=== PATIENT | female | born 1950 | race Caucasian/White ===

== ENCOUNTER 2022-04-28 07:57 | Day surgery (SDC) | payer MEDICARE, SELFPAY ==
[2022-04-21 14:56] VITALS: BMI 28.4
--- NOTE | 2022-04-27 13:18 | WPDANESEPPF ---
Anes - Initial Pre Proc Eval Procedure: Operation Date: 04/28/22 09:30 Proposed Procedures p Cataract Extraction with Lens Implant-Left Eye - Siva Fair MD Date/Time: 04/27/22 13:18 Surgeon: Siva Fair MD Pre Op Diagnosis: Cataract Left Eye Patient Data Age: 71 Gender: F Height: 1.68 m Weight: 80 kg Allergies Allergy/AdvReac Type Severity Reaction Status Date / Time meperidine AdvReac Intermediate Nausea and Verified 04/28/22 08:50 Vomiting Home Medications Medication Instructions Recorded Confirmed Type calcium carbonate 600 mg-vitamin 1 cap PO DAILY 04/03/20 04/28/22 History D3 5 mcg (200 unit) capsule (Calcium 600 + D(3)) cholecalciferol (vitamin D3) 125 125 mcg PO DAILY 04/03/20 04/28/22 History mcg (5,000 unit) capsule trazodone 50 mg tablet See Rx Instructions .Route 05/27/21 04/28/22 Rx .COMPLEX #180 tabs polyethylene glycol 3350 17 gram 17 g PO DAILY 07/22/21 04/28/22 History oral powder packet (Miralax) levothyroxine 50 mcg tablet 50 mcg PO DAILY #90 tabs 12/04/21 04/28/22 Rx sertraline 50 mg tablet (Zoloft) 50 mg PO DAILY #90 tabs 03/08/22 04/28/22 Rx omeprazole 40 mg capsule,delayed 40 mg PO DAILY #30 caps 04/15/22 04/28/22 Rx release Patient hx anesthesia problems: none Family hx anesthesia problems: none Results Review: All pre-operative results and documents have been reviewed as part of the pre-operative evaluation. [facility] Past Medical History Medical History (Updated 04/28/22 @ 09:22 by Ghulam Rowe DO) Acute UTI (~05/2018) Anxiety NEIL (generalized anxiety disorder) Herpes simplex type 1 infection Hypothyroidism Postmenopausal state Primary insomnia Right hip pain (~11/2017) Urinary incontinence concurrent with and due to female genital prolapse (~08/2018) Surgical History Surgical History (Updated 04/27/22 @ 13:19 by Ghulam Rowe DO) History of appendectomy History of arthroplasty of left knee Partial medial History of bilateral tubal ligation History of blepharoplasty History of delivery x 2 History of hysterectomy History of left knee replacement Family History Family History Sibling Family history of lung cancer Mother Family history of malignant neoplasm of ovary Other Family history of arthritis Family history of malignant neoplasm Social History Social History Smoking status: Never smoker Second hand tobacco smoke exposure: No Alcohol intake: current Drinks per week: 1 Alcohol use details: 2 PER MONTH Substance use: never Substance use type: does not use Lack of Transportation: No Lack of Food: Never True Current Housing: I Have Housing Concerned About Future Housing: No Difficulty Paying Gas/Electric Bills: No Difficulty Paying for Meds: No Currently Unemployed: No Education: Associate Degree Difficulty w/ Childcare or Family Care: No Living arrangements: with family Gender identity (if verbalized by the patient): Female Spiritual care concerns: No Agree to blood products: Yes Anes - Eval Final PreProcedure Day of Procedure 04/27/22 13:18 Patient weight: overweight Heart: regular rate and rhythm Lungs: clear to auscultation Airway: Mallampati scale class II Neurological: alert and oriented Last oral intake: >/= 8 hours ASA classification: II Emergent: no Anesthetic plan: proceed Anesthesia type and monitoring: monitored anesthesia care and standard monitoring Results Review: All pre-operative results and documents have been reviewed as part of the pre-operative evaluation. Informed Consent: The patient's anesthetic plan and its attendant risks and benefits were discussed with the patient/family/POA. Questions were solicited and answers provided to the satisfaction of the patient/family/POA.
[2022-04-28 08:53] VITALS: BP 124/89; PULSE 67; RESP 20; TEMP 36.6; O2SAT 100
[2022-04-28] MEDS: OFLOXACIN 0.3% OPHTH SOLN 5 ML BTL 1 DROP AFFCTD EYE ×2 (08:57→10:39)
[2022-04-28] MEDS: TETRACAINE HCL 0.5% OPHTH SOLN 4 ML BTL 1 DROP AFFCTD EYE ×3 (08:57→09:08)
--- NOTE | 2022-04-28 08:58 | WPDHPUPDATE1 ---
History and Physical Update Update Date/Time: 04/28/22 08:58 History and Physical has been reviewed, including an updated exam of the patient. There are NO changes in the patient's condition. Risks, benefits, and alternatives have been discussed and questions answered. Patient agrees to proceed with procedure.
[2022-04-28] MEDS: LIDOCAINE HCL 2% JELLY 5 ML TUBE 1 APPLIC AFFCTD EYE (10:09)
[2022-04-28] MEDS: LIDOCAINE HCL 1% PF INJ 5 ML VIAL 1 ML INTRAOCULA (10:25)
[2022-04-28] MEDS: NEOMYCIN/POLYMYXIN/DEXAMETH OP OINT 3.5 GM TUBE 1 APPLIC AFFCTD EYE (10:39)
[2022-04-28] MEDS: prednisoLONE ACETATE 1% OPHTH 5 ML 1 DROP AFFCTD EYE (10:39)
[2022-04-28 10:48] VITALS: BP 142/83; PULSE 59; RESP 14; O2SAT 100
[2022-04-28] MEDS: acetaZOLAMIDE TAB 250 MG TABLET PO (10:51)
--- NOTE | 2022-04-28 12:04 | WPDANESPN ---
Anes - Prog Note Post-Op Date/Time: 04/28/22 12:04 Cardiovascular status: normal Respiratory status: normal Airway patency: baseline Mental status: baseline Post-Op hydration status: normal Vital Signs: Last Vital Signs Temp 36.6 C 04/28/22 08:53 Pulse 59 L 04/28/22 10:48 Resp 14 04/28/22 10:48 BP 142/83 H 04/28/22 10:48 Pulse Ox 100 04/28/22 10:48 O2 Del Method Room Air 04/28/22 10:48 Pain Score (VAS): 0 Post-procedural complaints: none Patient Feedback: Patient satisfied with anesthetic care. Other Findings: Patient vital signs back to baseline. Patient denies nausea and vomiting. Patient's pain under control. Patient OK for discharge.
--- NOTE | 2022-04-28 12:31 | W.PM.PROC2 ---
Procedure Note - Detailed Date of Procedure 04/28/22 Pre-op Diagnosis Cataract Left Eye Post-op Diagnosis Same Procedure Performed Cataract Extraction (by Phacoemulsification) and lntraocular Lens Implant Surgeon Siva Fair MD Anesthesia MAC Description of Procedure The eye was anesthetized with topical 0.75% bupivacaine. After intravenous sedation and placement of monitors, the patient was prepped and draped in the usual sterile manner. A lid speculum was placed. A paracentesis was made, and preservative free 1% lidocaine was instilled in the anterior chamber. The anterior chamber was then filled with Viscoat viscoelastic. A alisha keratome was used to create the wound. Continuous tear anterior capsulotomy was performed. The lens was hydro dissected before being removed with phacoemulsification. The remaining lenticular cortex was removed with aspiration. The capsular bag was polished and filled with viscoelastic material. An intraocular lens was chosen, inspected, irrigated and placed within the capsular bag where it was seen to be centered and stable. The viscoelastic material was aspirated. The wound was closed and found to be watertight. Ciloxan drops were placed in the eye. The speculum was removed. A Martin shield was applied. The patient tolerated the procedure well and left the operating room in satisfactory condition. Implants See chart Complications None Condition Stable Disposition Same day
== END 2022-04-28 11:05 | disposition home or self-care (01) ==
PROVIDERS: PCP Family Medicine; Visit Provider Student in an Organized Health Care Education/Training Program
PROC: (CPT 66983; principal; 2022-04-28 09:30)
DX: H25.12 Age-related nuclear cataract, left eye (principal)
CPT/HCPCS: 66984

== ENCOUNTER 2022-05-12 07:53 | Day surgery (SDC) | payer MEDICARE, SELFPAY ==
--- NOTE | 2022-05-12 07:26 | WPDHPUPDATE1 ---
History and Physical Update Update Date/Time: 05/12/22 07:26 History and Physical has been reviewed, including an updated exam of the patient. There are NO changes in the patient's condition. Risks, benefits, and alternatives have been discussed and questions answered. Patient agrees to proceed with procedure.
[2022-05-12 08:05] VITALS: BP 128/89; PULSE 65; RESP 16; TEMP 36.8; O2SAT 100
[2022-05-12] MEDS: OFLOXACIN 0.3% OPHTH SOLN 5 ML BTL 1 DROP AFFCTD EYE (08:15)
[2022-05-12] MEDS: TETRACAINE HCL 0.5% OPHTH SOLN 4 ML BTL 1 DROP AFFCTD EYE ×3 (08:15→08:25)
--- NOTE | 2022-05-12 08:29 | WPDANESEPPF ---
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 Right Eye Patient Data Age: 71 Gender: F Height: 1.63 m Weight: 78 kg Allergies Allergy/AdvReac Type Severity Reaction Status Date / Time meperidine AdvReac Intermediate Nausea and Verified 05/05/22 10:30 Vomiting Home Medications Medication Instructions Recorded Confirmed Type calcium carbonate 600 mg-vitamin 1 cap PO DAILY 04/03/20 05/05/22 History D3 5 mcg (200 unit) capsule (Calcium 600 + D(3)) cholecalciferol (vitamin D3) 125 125 mcg PO DAILY 04/03/20 05/05/22 History mcg (5,000 unit) capsule trazodone 50 mg tablet See Rx Instructions .Route 05/27/21 05/05/22 Rx .COMPLEX #180 tabs polyethylene glycol 3350 17 gram 17 g PO DAILY 07/22/21 05/05/22 History oral powder packet (Miralax) levothyroxine 50 mcg tablet 50 mcg PO DAILY #90 tabs 12/04/21 05/05/22 Rx sertraline 50 mg tablet (Zoloft) 50 mg PO DAILY #90 tabs 03/08/22 05/05/22 Rx omeprazole 40 mg capsule,delayed 40 mg PO DAILY #30 caps 04/15/22 05/05/22 Rx release Patient hx anesthesia problems: none Family hx anesthesia problems: none Results Review: All pre-operative results and documents have been reviewed as part of the pre-operative evaluation. [facility] Past Medical History Medical History (Updated 04/28/22 @ 09:22 by Ghulam Rowe DO) Acute UTI (~05/2018) Anxiety NEIL (generalized anxiety disorder) Herpes simplex type 1 infection Hypothyroidism Postmenopausal state Primary insomnia Right hip pain (~11/2017) Urinary incontinence concurrent with and due to female genital prolapse (~08/2018) Surgical History Surgical History (Updated 04/27/22 @ 13:19 by Ghulam Rowe DO) History of appendectomy History of arthroplasty of left knee Partial medial History of bilateral tubal ligation History of blepharoplasty History of delivery x 2 History of hysterectomy History of left knee replacement Family History Family History Sibling Family history of lung cancer Mother Family history of malignant neoplasm of ovary Other Family history of arthritis Family history of malignant neoplasm Social History Social History Smoking status: Never smoker Second hand tobacco smoke exposure: No Alcohol intake: current Drinks per week: 1 Alcohol use details: 2 PER MONTH Substance use: never Substance use type: does not use Lack of Transportation: No Lack of Food: Never True Current Housing: I Have Housing Concerned About Future Housing: No Difficulty Paying Gas/Electric Bills: No Difficulty Paying for Meds: No Currently Unemployed: No Education: Associate Degree Difficulty w/ Childcare or Family Care: No Living arrangements: with family Gender identity (if verbalized by the patient): Female Spiritual care concerns: No Agree to blood products: Yes Anes - Eval Final PreProcedure Day of Procedure 05/12/22 08:29 Patient weight: overweight Heart: regular rate and rhythm Lungs: clear to auscultation Airway: Mallampati scale class II Neurological: alert and oriented Last oral intake: >/= 8 hours ASA classification: II Emergent: no Anesthetic plan: proceed Anesthesia type and monitoring: monitored anesthesia care and standard monitoring Results Review: All pre-operative results and documents have been reviewed as part of the pre-operative evaluation. Informed Consent: The patient's anesthetic plan and its attendant risks and benefits were discussed with the patient/family/POA. Questions were solicited and answers provided to the satisfaction of the patient/family/
[2022-05-12] MEDS: LIDOCAINE HCL 2% JELLY 5 ML TUBE 1 APPLIC AFFCTD EYE (08:55)
[2022-05-12] MEDS: LIDOCAINE HCL 1% PF INJ 5 ML VIAL 1 ML INTRAOCULA (09:23)
[2022-05-12] MEDS: NEOMYCIN/POLYMYXIN/DEXAMETH OP OINT 3.5 GM TUBE 1 APPLIC AFFCTD EYE (09:30)
[2022-05-12] MEDS: HOME MEDICATION 1 EACH AFFCTD EYE (09:30)
[2022-05-12 09:33] VITALS: BP 127/68; PULSE 55; RESP 15; O2SAT 100
[2022-05-12] MEDS: acetaZOLAMIDE TAB 250 MG TABLET PO (09:37)
--- NOTE | 2022-05-12 11:37 | W.PM.PROC2 ---
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 After intravenous sedation and placement of monitors, the patient was prepped and draped in the usual sterile manner. A lid speculum was placed. A paracentesis was made, and preservative free 1% lidocaine was instilled in the anterior chamber. The anterior chamber was then filled with Viscoat viscoelastic. A alisha keratome was used to create the wound. Continuous tear anterior capsulotomy was performed. The lens was hydro dissected before being removed with phacoemulsification. The remaining lenticular cortex was removed with aspiration. The capsular bag was polished and filled with viscoelastic material. An intraocular lens was chosen, inspected, irrigated and placed within the capsular bag where it was seen to be centered and stable. The viscoelastic material was aspirated. The wound was closed and found to be watertight. Ciloxan drops were placed in the eye. The speculum was removed. A Martin shield was applied. The patient tolerated the procedure well and left the operating room in satisfactory condition. Implants See chart Complications None Condition Stable Disposition Same day
--- NOTE | 2022-05-12 11:46 | WPDANESPN ---
Anes - Prog Note Post-Op Date/Time: 05/12/22 11:46 Cardiovascular status: normal Respiratory status: normal Airway patency: baseline Mental status: baseline Post-Op hydration status: normal Vital Signs: Last Vital Signs Temp 36.8 C 05/12/22 08:05 Pulse 55 L 05/12/22 09:33 Resp 15 05/12/22 09:33 BP 127/68 05/12/22 09:33 Pulse Ox 100 05/12/22 09:33 O2 Del Method Room Air 05/12/22 09:33 Pain Score (VAS): 0 Post-procedural complaints: none Patient Feedback: Patient satisfied with anesthetic care.
== END 2022-05-12 09:59 | disposition home or self-care (01) ==
PROVIDERS: PCP Family Medicine; Visit Provider Student in an Organized Health Care Education/Training Program
PROC: (CPT 66983; principal; 2022-05-12 08:50)
DX: H25.11 Age-related nuclear cataract, right eye (principal)
CPT/HCPCS: 66984

== ENCOUNTER → 2022-11-16 15:32 | Outpatient (CLI) | payer MEDICARE, SELFPAY ==
--- NOTE | ~2022-11-16 | XR_ITS ---
EXAMINATION: XR chest 2V 11/16/2022 15:53 INDICATION: Chronic cough PROCEDURE: 2 view chest COMPARISON: 01/23/2015 FINDINGS: The lungs are clear. The cardiomediastinal silhouette is within normal limits. There are no pleural effusions. There is no pneumothorax suspected. IMPRESSION: 1: NO ACUTE CARDIOPULMONARY DISEASE. Reviewed, dictated and finalized at location L.
== END ==
PROVIDERS: PCP Family Medicine; Visit Provider Family Medicine
DX: R05.3 Chronic cough (principal)
CPT/HCPCS: 71046

== ENCOUNTER → 2023-01-13 11:28 | Outpatient (CLI) | payer MEDICARE, SELFPAY ==
--- NOTE | ~2023-01-13 | XR_ITS ---
EXAMINATION: XR ribs BI 3V w CXR 2V INDICATION: Bilateral chest pain TECHNIQUE: AP and lateral views of the chest and 3 views of the bilateral ribs were obtained. COMPARISON: 11/16/2022 FINDINGS: The lungs are free of acute opacities. No pleural effusion or pneumothorax there is moderat e thoracic spondylosis. There is a questionable nondisplaced anterolateral fracture of the left eight h rib. IMPRESSION: 1. No acute cardiopulmonary abnormality. 2. Possible nondisplaced anterolateral fracture of the left eighth rib. Reviewed, dictated and finalized at location L. [facility]
== END ==
PROVIDERS: PCP Physician Assistant; Visit Provider Physician Assistant
DX: R07.89 Other chest pain (principal)
CPT/HCPCS: 71046; 71110

== ENCOUNTER 2023-01-20 06:12 | Day surgery (SDC) | payer MEDICARE, SELFPAY ==
[2022-12-15 10:42] VITALS: BMI 29.6
[2023-01-13 09:05] VITALS: BMI 27.7
[2023-01-20 07:01] VITALS: BMI 28.0
--- NOTE | 2023-01-20 07:55 | PM.HPGS ---
History of Present Illness History of Present Illness Consent: Risks, benefits, and alternatives have been discussed and questions answered. Patient agrees to proceed with procedure. Chief complaint: Chronic Cough without Esophagitis Narrative: Maryjane Mancuso is a 72 year old female with gerd that improved after omeprazole and pepcid but still with some cough, never had egd Review of Systems Constitutional: Constitutional: Denies headache(s) and Denies weakness Eyes: Eyes: Denies blurry vision ENT: Reports Normal hearing present, Denies headache(s) and Denies neck pain Cardiovascular: Cardiovascular: Denies chest pain and Denies dyspnea Respiratory: Respiratory: Denies dyspnea Gastrointestinal: Gastrointestinal: Reports no additional gastrointestinal complaints Genitourinary: Genitourinary: Denies dysuria Musculoskeletal: Musculoskeletal: Denies neck pain Integumentary/Breasts: Skin/Breast: Denies dry skin Neurologic: Reports Normal hearing present, Denies headache(s) and Denies weakness Psychiatric: Psychiatric: Denies anxiety Endocrine: Endocrine: Denies change in body appearance Hematologic/Lymphatic: Hematologic/Lymphatic: Denies easy bleeding Allergic/Immunologic: Allergic/Immunologic: Denies urticaria PMFSH Past Medical History Medical History (Updated 01/20/23 @ 07:56 by Bryant Bass MD) Anxiety Cough NEIL (generalized anxiety disorder) Gastroesophageal reflux disease Herpes simplex type 1 infection Hypothyroidism Postmenopausal state Primary insomnia Right hip pain (~11/2017) Urinary incontinence concurrent with and due to female genital prolapse (~08/2018) Surgical History Surgical History History of appendectomy History of arthroplasty of left knee Partial medial History of bilateral tubal ligation History of blepharoplasty History of delivery x 2 History of hysterectomy History of left knee replacement Hx of cataract surgery Both eyes 06/27 Family History Family History Sibling Family history of lung cancer Mother Family history of malignant neoplasm of ovary Other Family history of arthritis Family history of malignant neoplasm Social History Social History Smoking status: Never smoker Second hand tobacco smoke exposure: No Alcohol intake: current Drinks per week: 1 Alcohol use details: 2 PER MONTH Substance use: never Substance use type: does not use Lack of Transportation: No Lack of Food: Never True Current Housing: I Have Housing Concerned About Future Housing: No Difficulty Paying Gas/Electric Bills: No Difficulty Paying for Meds: No Currently Unemployed: No Education: Associate Degree Difficulty w/ Childcare or Family Care: No Living arrangements: with family Gender identity (if verbalized by the patient): Female Spiritual care concerns: No Agree to blood products: Yes Meds Home Medications and Allergies Home Medications Medication Instructions Recorded Confirmed Type calcium carbonate 600 mg-vitamin 1 cap PO DAILY 04/03/20 01/20/23 History D3 5 mcg (200 unit) capsule (Calcium 600 + D(3)) cholecalciferol (vitamin D3) 125 125 mcg PO DAILY 04/03/20 01/20/23 History mcg (5,000 unit) capsule polyethylene glycol 3350 17 gram 17 g PO DAILY 07/22/21 01/20/23 History oral powder packet (Miralax) mirabegron 50 mg tablet,extended 50 mg PO DAILY 07/27/22 01/20/23 History release 24 hr (Myrbetriq) trazodone 50 mg tablet See Rx Instructions .Route 09/05/22 01/20/23 Rx .COMPLEX #180 tabs omeprazole 40 mg capsule,delayed 40 mg PO DAILY #90 caps 10/13/22 01/20/23 Rx release cyanocobalamin (vitamin B-12) 1,000 mcg PO DAILY 11/16/22 01/20/23 History 1,000 mcg capsule famotidine 40 mg tablet 40 mg PO
--- NOTE | 2023-01-20 07:59 | WPDANESEPPF ---
Anes - Initial Pre Proc Eval Procedure: Operation Date: 01/20/23 08:00 Proposed Procedures p Esophagogastroduodenoscopy - Bryant Bass MD Date/Time: 01/20/23 07:59 Surgeon: Bryant Bass MD Pre Op Diagnosis: Chronic Cough without Esophagitis Patient Data Age: 72 Gender: F Height: 1.68 m Weight: 78.7 kg Allergies Allergy/AdvReac Type Severity Reaction Status Date / Time meperidine AdvReac Intermediate Nausea and Verified 01/20/23 06:59 Vomiting Home Medications Medication Instructions Recorded Confirmed Type calcium carbonate 600 mg-vitamin 1 cap PO DAILY 04/03/20 01/20/23 History D3 5 mcg (200 unit) capsule (Calcium 600 + D(3)) cholecalciferol (vitamin D3) 125 125 mcg PO DAILY 04/03/20 01/20/23 History mcg (5,000 unit) capsule polyethylene glycol 3350 17 gram 17 g PO DAILY 07/22/21 01/20/23 History oral powder packet (Miralax) mirabegron 50 mg tablet,extended 50 mg PO DAILY 07/27/22 01/20/23 History release 24 hr (Myrbetriq) trazodone 50 mg tablet See Rx Instructions .Route 09/05/22 01/20/23 Rx .COMPLEX #180 tabs omeprazole 40 mg capsule,delayed 40 mg PO DAILY #90 caps 10/13/22 01/20/23 Rx release cyanocobalamin (vitamin B-12) 1,000 mcg PO DAILY 11/16/22 01/20/23 History 1,000 mcg capsule famotidine 40 mg tablet 40 mg PO DAILY #90 tabs 11/16/22 01/20/23 Rx levothyroxine 50 mcg tablet 50 mcg PO DAILY #90 tabs 11/16/22 01/20/23 Rx multivitamin 1 tablet PO DAILY 11/16/22 01/20/23 History sertraline 50 mg tablet (Zoloft) 50 mg PO DAILY #90 tabs 01/19/23 01/20/23 Rx Patient hx anesthesia problems: none Family hx anesthesia problems: none Results Review: All pre-operative results and documents have been reviewed as part of the pre-operative evaluation. [facility] Past Medical History Medical History Anxiety Cough NEIL (generalized anxiety disorder) Gastroesophageal reflux disease Herpes simplex type 1 infection Hypothyroidism Postmenopausal state Primary insomnia Right hip pain (~11/2017) Urinary incontinence concurrent with and due to female genital prolapse (~08/2018) Surgical History Surgical History History of appendectomy History of arthroplasty of left knee Partial medial History of bilateral tubal ligation History of blepharoplasty History of delivery x 2 History of hysterectomy History of left knee replacement Hx of cataract surgery Both eyes 06/27 Family History Family History Sibling Family history of lung cancer Mother Family history of malignant neoplasm of ovary Other Family history of arthritis Family history of malignant neoplasm Social History Social History Smoking status: Never smoker Second hand tobacco smoke exposure: No Alcohol intake: current Drinks per week: 1 Alcohol use details: 2 PER MONTH Substance use: never Substance use type: does not use Lack of Transportation: No Lack of Food: Never True Current Housing: I Have Housing Concerned About Future Housing: No Difficulty Paying Gas/Electric Bills: No Difficulty Paying for Meds: No Currently Unemployed: No Education: Associate Degree Difficulty w/ Childcare or Family Care: No Living arrangements: with family Gender identity (if verbalized by the patient): Female Spiritual care concerns: No Agree to blood products: Yes Anes - Eval Final PreProcedure Day of Procedure 01/20/23 07:59 Patient weight: overweight Heart: regular rate and rhythm Lungs: clear to auscultation Airway: Mallampati scale class 1 Neurological: alert and oriented Last oral intake: >/= 8 hours ASA classification: II Emergent: no Anesthetic plan: proceed Anesthesia type and monitoring: ge
[2023-01-20 08:12] VITALS: BP 130/85; PULSE 69; RESP 16; O2SAT 96
[2023-01-20] MEDS: LACTATED RINGERS 1,000 ML 150 ML IV CONT (08:19)
[2023-01-20 08:22] VITALS: BP 130/68; PULSE 63; RESP 16; O2SAT 100
[2023-01-20 08:32] VITALS: BP 144/85; PULSE 60; RESP 16; O2SAT 100
--- NOTE | 2023-01-20 08:39 | WPDANESPN ---
Anes - Prog Note Post-Op Date/Time: 01/20/23 08:39 Cardiovascular status: normal Respiratory status: normal Airway patency: baseline Mental status: baseline Post-Op hydration status: normal Vital Signs: Last Vital Signs Pulse 63 01/20/23 08:22 Resp 16 01/20/23 08:22 BP 130/68 01/20/23 08:22 Pulse Ox 100 01/20/23 08:22 O2 Del Method Room Air 01/20/23 08:22 Pain Score (VAS): 0 I/O: Intake & Output 01/19/23 01/20/23 01/20/23 23:59 07:59 15:59 Intake Total 100 Balance 100 Patient Feedback: Patient satisfied with anesthetic care.
== END 2023-01-20 08:46 | disposition home or self-care (01) ==
PROVIDERS: PCP Family Medicine; Visit Provider Internal Medicine Gastroenterology
PROC: 0DJ08ZZ Inspection of Upper Intestinal Tract, Via Natural or Artificial Opening Endoscopic (ICD-10-PCS; CPT 43235; principal; 2023-01-20 08:00)
DX: K21.9 Gastro-esophageal reflux disease without esophagitis (principal); R05.3 Chronic cough
CPT/HCPCS: 43239

== ENCOUNTER 2023-01-20 08:11 | Outpatient (NON) | payer MEDICARE, SELFPAY | END 2023-01-20 08:12 | disposition home or self-care (01) | PROVIDERS: PCP Family Medicine; Visit Provider Internal Medicine Gastroenterology | DX: R05.9 Cough, unspecified (principal) | CPT/HCPCS: 88305 ==

== ENCOUNTER 2023-04-12 10:54 | Emergency (ER) | payer OTHER, SELFPAY ==
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
[2023-04-12 10:57] VITALS: BP 173/84; PULSE 70; RESP 17; TEMP 36.6; O2SAT 100
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
[2023-04-12] MEDS: KETOROLAC 15 MG/ML VIAL (*BKC) IV PUSH (13:05)
[2023-04-12 13:06] VITALS: BP 183/99; PULSE 64; RESP 18; O2SAT 100
== END 2023-04-12 13:29 | disposition home or self-care (01) ==
PROVIDERS: Emergency Provider Physician Assistant; PCP Family Medicine
DX: S13.4XXA Sprain of ligaments of cervical spine, initial encounter (principal); F41.9 Anxiety disorder, unspecified; K21.9 Gastro-esophageal reflux disease without esophagitis; E03.9 Hypothyroidism, unspecified; V89.2XXA Person injured in unspecified motor-vehicle accident, traffic, initial encounter
CPT/HCPCS: 70450; 72125; 96374; 99284; J1885

== ENCOUNTER 2023-06-14 12:23 | Outpatient (CLI) | payer OTHER, SELFPAY ==
--- NOTE | ~2023-06-14 | XR_ITS ---
XR lumbar spine min 4V 06/14/2023 13:09 Indication: Low back pain Procedure: 5 views lumbar spine Comparison: No prior studies for comparison. Findings: There is dextroscoliosis. Vertebral body heights are maintained. There is disc narrowing at multiple lumbar levels. There is facet hypertrophy of the mid and lower lumbar spine. No evidence fo r spondylolisthesis. Sacral foramen are symmetric. Impression: 1: Moderate lumbar spondylosis with dextroscoliosis Reviewed, dictated and finalized at location A. Impression: 1: Moderate lumbar spondylosis with dextroscoliosis
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
== END 2023-06-14 12:24 ==
LOC: MICIMG 12:24
PROVIDERS: PCP Family Medicine; Visit Provider Family Medicine
DX: M54.50 Low back pain, unspecified (principal); M54.2 Cervicalgia; M43.06 Spondylolysis, lumbar region; M41.86 Other forms of scoliosis, lumbar region; M43.02 Spondylolysis, cervical region
CPT/HCPCS: 72110; 72141

== ENCOUNTER 2023-09-20 06:58 | Day surgery (SDC) | payer OTHER, SELFPAY ==
[2023-09-05 13:21] VITALS: BMI 28.8
[2023-09-15 15:00] VITALS: BMI 28.8
--- NOTE | ~2023-09-20 | XR_ITS ---
EXAMINATION: XR fluoroscopy no charge DATE: 09/20/2023 8:45 CDT INDICATION: RT C6-7 INTERLAMINAR EPI STEROID INJ . TECHNIQUE: 4 fluoroscopic images and 3 cine clips of the cervical spine were obtained during right C6 -7 interlaminar epidural steroid injection, performed by Terrance Richardson MD. I was not present durin g the procedure. Fluoroscopy exposure time was 14.6 seconds. Air Kerma 2.35 mGy. COMPARISON: None FINDINGS/IMPRESSION: Fluoroscopic documentation of right C6-7 interlaminar epidural steroid injection. Please refer to the operative note for complete procedural details. Reviewed, dictated and finalized at location K.
--- NOTE | 2023-09-20 06:18 | PM.HPGS ---
History of Present Illness History of Present Illness Consent: Risks, benefits, and alternatives have been discussed and questions answered. Patient agrees to proceed with procedure. Chief complaint: cervical radiculopathy, cervical spinal stenosis Narrative: Maryjane Mancuso is a 72 year old female with chronic, recalcitrant and disabling right cervical radiculopathy and neck and upper extremity pain secondary to cervical spinal stenosis with failure to respond to aggressive conservative measures including PT, oral and topical analgesics, opioid and nonopioid analgesics, rest, time and activity/behavioral modification over the past 1-2 years who presents for rightward cervical interlaminar epidural steroid injection at C6-7 under fluoroscopic guidance and with contrast control. Review of Systems Review of Systems: Patient denies any new infectious, allergic, cardiopulmonary, neurologic or constitutional symptoms or changes in activity tolerance or exercise capacity including new or progressive SOB/GUY, peripheral edema, productive cough, dysuria, nausea/vomiting, diarrhea, weight change, fevers/chills/night sweats, new or progressive neurologic deficit, cognitive or mood changes since last seen, except as documented in the HPI. All systems reviewed & are unremarkable except as noted in HPI and below PMFSH Past Medical History Medical History Anxiety Cough NEIL (generalized anxiety disorder) Gastroesophageal reflux disease Herpes simplex type 1 infection Hypothyroidism Lumbar spondylosis Postmenopausal state Primary insomnia Right hip pain (~11/2017) Urinary incontinence concurrent with and due to female genital prolapse (~08/2018) Surgical History Surgical History History of appendectomy History of arthroplasty of left knee Partial medial History of bilateral tubal ligation History of blepharoplasty History of delivery x 2 History of hysterectomy History of left knee replacement Hx of cataract surgery Both eyes 06/27 Family History Family History Sibling Family history of lung cancer Mother Family history of malignant neoplasm of ovary Other Family history of arthritis Family history of malignant neoplasm Social History Social History Smoking status: Never smoker Second hand tobacco smoke exposure: Yes Alcohol intake: current Drinks per week: 1 Alcohol use details: beer/ wine socially Substance use: never Substance use type: does not use Do You Feel Safe in your Home?: Yes Lack of Transportation: No Lack of Food: Never True Current Housing: I Have Housing Concerned About Future Housing: No Difficulty Paying Gas/Electric Bills: No Difficulty Paying for Meds: No Currently Unemployed: No Education: Associate Degree Difficulty w/ Childcare or Family Care: No Living arrangements: with family Gender identity (if verbalized by the patient): Female Spiritual care concerns: No Agree to blood products: Yes Meds Home Medications and Allergies Home Medications Medication Instructions Recorded Confirmed Type calcium carbonate 600 mg-vitamin 1 cap PO DAILY 04/03/20 09/15/23 History D3 5 mcg (200 unit) capsule (Calcium 600 + D(3)) polyethylene glycol 3350 17 gram 17 g PO DAILY 07/22/21 09/15/23 History oral powder packet (Miralax) trazodone 50 mg tablet See Rx Instructions .Route 09/05/22 09/15/23 Rx .COMPLEX #180 tabs omeprazole 40 mg capsule,delayed 40 mg PO DAILY #90 caps 10/13/22 09/15/23 Rx release mirabegron 50 mg tablet,extended 50 mg PO DAILY #90 tabs 03/08/23 09/15/23 Rx release 24 hr (Myrbetriq) sertraline 50 mg tablet (Zoloft) 50 mg PO DAILY #90 tabs 04/04/23
--- NOTE | 2023-09-20 06:22 | WPDHPUPDATE1 ---
History and Physical Update Update Date/Time: 09/20/23 06:22 History and Physical has been reviewed, including an updated exam of the patient. There are NO changes in the patient's condition. Risks, benefits, and alternatives have been discussed and questions answered. Patient agrees to proceed with procedure.
--- NOTE | 2023-09-20 06:22 | W.PM.PROC2 ---
Procedure Note - Detailed Date of Procedure 09/20/23 Pre-op Diagnosis cervical radiculopathy, cervical spinal stenosis Post-op Diagnosis Same Procedure Performed Rightward Cervical Interlaminar Epidural Steroid Injection at C6-7 under Fluoroscopic Guidance and with Contrast Control]. Surgeon Terrance Richardson MD Anesthesia Local Description of Procedure INFORMED CONSENT: Risks, benefits and alternatives to the procedure were discussed in detail with the patient who expressed explicit understanding and consent to proceed. Patient was informed verbally and in written form regarding the risks associated with the procedure including the low risk of serious infection, bleeding/bruising, allergic reaction, nerve or organ injury, paralysis, procedural site pain or discomfort, worsening pain and/or mobility, failure to treat and/or disfigurement. The patient expressed explicit understanding and consent to proceed. All materials required for the procedure were available prior to procedure start. Site and side was marked prior to procedure and confirmed in the presence of the patient. PROCEDURE IN DETAIL: The patient was brought to the procedural suite and placed in the prone position. Patient's head was positioned and stabilized with a ProneView pillow or equivalent. Patient was made comfortable with use of pillows under the chest, hips and ankles. Skin overlying the injection site was prepared broadly with ChloraPrep applicator and draped in a sterile manner. Aseptic technique was employed throughout. The endplates of the vertebral body at the site of interest were aligned in the AP view. Slight caudad tilt and ipsilateral oblique angulation was utilized to optimize visualization of the targeted posterior intervertebral foramen at C6-7. Local anesthesia was established by infiltration with approximately 5 mL of 2% lidocaine via a 1-1/2 inch 27-gauge needle. A 20-gauge 4-inch Tuohy epidural needle was advanced intermittently until appropriate loss of resistance to air was identified via plastic loss of resistance syringe. Lateral view was used to confirm the appropriate positioning of the needle tip within the posterior epidural space. [In the AP view, 2.0 mL of Omnipaque 300 contrast medium was injected after negative aspiration for CSF, blood or other bodily fluid, showing appropriate epidural spread of contrast without evidence of intravascular or intrathecal placement.] After negative repeat aspiration for CSF, blood or other bodily fluid, A 4 mL solution containing 6 mg of betamethasone in sterile PF Normal Saline was injected after negative repeat aspiration. Appropriate spread of the injectate was confirmed with washout of previously injected contrast. No parasthesias were elicited. Needle was removed completely intact without difficulty. Images were saved and documented in the patient chart. Patient's skin was cleansed and sterile bandage applied. The patient tolerated the procedure well. The patient was transported to the recovery area in stable condition where they were observed for an appropriate amount of time prior to discharge, without evidence of complication. The patient was instructed to avoid excessive activity for the next 48 hours, including overhead work, reaching or extended device/computer usage. Showers only for 48 hours. They were instructed not to drive or operate heavy machinery for 24 hours. They are to monitor for severe headaches, fevers, chills, night sweats, erythema/swelling at the site or any other signs of infection, bleeding/bruising, bowel or bladder changes as well as new pain, weakness or numbness in the upper or lower extremity. Should they notice these changes, they are instructed to call our office immediately or report directly to the nearest Emergency Department if no answer or if after posted office hours. CONTRAST WASTED: 28mL Omnipaque 300. Estimated Blood Loss 0 IV Fluids 0 Urine Output 0 Drains No Packing No Path
[2023-09-20 08:07] VITALS: BP 139/99; PULSE 75; RESP 18; TEMP 37.2; O2SAT 98; BMI 28.3
[2023-09-20 08:55] VITALS: BP 168/80; PULSE 62; RESP 16; O2SAT 97
[2023-09-20 09:01] VITALS: BP 167/88; PULSE 72; RESP 16; O2SAT 97
[2023-09-20] MEDS: BUPivacaine HCL 0.5% 10 ML AMP INFILTRATE (09:01)
[2023-09-20] MEDS: LIDOCAINE HCL 1% PF INJ 5 ML VIAL 2 ML XX (09:06)
[2023-09-20 09:08] VITALS: BP 166/84; PULSE 58; RESP 16; O2SAT 99
== END 2023-09-20 09:19 | disposition home or self-care (01) ==
PROVIDERS: PCP Family Medicine; Visit Provider Anesthesiology Pain Medicine
PROC: (CPT 62321; principal; 2023-09-20 08:45)
DX: M54.12 Radiculopathy, cervical region (principal); M48.02 Spinal stenosis, cervical region
CPT/HCPCS: 62321; 99199

== ENCOUNTER 2023-11-23 08:38 | Outpatient (CLI) | payer OTHER, SELFPAY ==
--- NOTE | 2023-11-23 11:30 | NEURO_ITS ---
Impression: Complains of right upper extremity pain, not diabetic. # No Carpal Tunnel Syndrome # No ulnar neuropathy # Normal needle/EMG exam of proximal/distal muscles. # Clinical Correlation Recommended. Nerve Conduction Studies Anti Sensory Summary Table Stim Site NR Peak (ms) P-T Amp (?V) Site1 Site2 Delta-P (ms) Dist (cm) Quintin (m/s) Left Median Anti Sensory (2-3nd Digit) Wrist 2.9 79.8 Wrist 2-3nd Digit 2.9 14.0 48 Wrist 3.1 80.9 Wrist 2-3nd Digit 2.9 14.0 48 Right Median Anti Sensory (2-3nd Digit) Wrist 3.1 66.5 Wrist 2-3nd Digit 3.1 14.0 45 Wrist 3.1 39.4 Wrist 2-3nd Digit 3.1 14.0 45 Left Radial Anti Sensory (Base 1st Digit) Wrist 2.2 35.9 Wrist Base 1st Digit 2.2 0.0 Right Radial Anti Sensory (Base 1st Digit) Wrist 2.4 16.2 Wrist Base 1st Digit 2.4 0.0 Left Ulnar Anti Sensory (5th Digit) Wrist 2.7 76.8 Wrist 5th Digit 2.7 14.0 52 Right Ulnar Anti Sensory (5th Digit) Wrist 2.8 21.8 Wrist 5th Digit 2.8 14.0 50 Motor Summary Table Stim Site NR Onset (ms) O-P Amp (mV) Site1 Site2 Delta-0 (ms) Dist (cm) Quintin (m/s) Left Median Motor (Abd Poll Brev) Wrist 3.3 1.8 Elbow Wrist 5.2 29.0 56 Elbow 8.5 1.7 Right Median Motor (Abd Poll Brev) Wrist 3.4 3.1 Elbow Wrist 5.6 30.0 54 Elbow 9.0 2.5 Left Ulnar Motor (Abd Dig Minimi) Wrist 2.6 4.5 A Elbow Wrist 5.3 29.0 55 A Elbow 7.9 3.4 Right Ulnar Motor (Abd Dig Minimi) Wrist 2.4 5.0 A Elbow Wrist 5.7 32.0 56 A Elbow 8.1 4.3 F Wave Studies NR F-Lat (ms) L-R F-Lat (ms) Left Median (Mrkrs) (Abd Poll Brev) 28.36 0.94 Right Median (Mrkrs) (Abd Poll Brev) 27.42 0.94 Left Ulnar (Mrkrs) (Abd Dig Min) 28.88 0.47 Right Ulnar (Mrkrs) (Abd Dig Min) 28.41 0.47 EMG Side Muscle Nerve Root Ins Act Fibs Amp Dur Recrt Comment Right 1stDorInt Ulnar C8-T1 Nml Nml Nml Nml Nml Right Ext Indicis Radial (Post Int) C7-8 Nml Nml Nml Nml Nml Right Ext Digitorum Radial (Post Int) C7-8 Nml Nml Nml Nml Nml Right BrachioRad Radial C5-6 Nml Nml Nml Nml Nml Right PronatorTeres Median C6-7 Nml Nml Nml Nml Nml Right Abd Poll Brev Median C8-T1 Nml Nml Nml Nml Nml Right ABD Dig Min Ulnar C8-T1 Nml Nml Nml Nml Nml Left 1stDorInt Ulnar C8-T1 Nml Nml Nml Nml Nml Left Ext Indicis Radial (Post Int) C7-8 Nml Nml Nml Nml Nml Left Ext Digitorum Radial (Post Int) C7-8 Nml Nml Nml Nml Nml Left BrachioRad Radial C5-6 Nml Nml Nml Nml Nml Left PronatorTeres Median C6-7 Nml Nml Nml Nml Nml Left Abd Poll Brev Median C8-T1 Nml Nml Nml Nml Nml Left ABD Dig Min Ulnar C8-T1 Nml Nml Nml Nml Nml Right Biceps Musculocut C5-6 Nml Nml Nml Nml Nml Right Triceps Radial C6-7-8 Nml Nml Nml Nml Nml Right Deltoid Axillary C5-6 Nml Nml Nml Nml Nml Left Biceps Musculocut C5-6 Nml Nml Nml Nml Nml Left Triceps Radial C6-7-8 Nml Nml Nml Nml Nml Left Deltoid Axillary C5-6 Nml Nml Nml Nml Nml MTDD
== END 2023-11-23 08:39 | disposition home or self-care (01) ==
LOC: ANHNEURO 08:40
PROVIDERS: PCP Family Medicine; Visit Provider Anesthesiology Pain Medicine
DX: M54.12 Radiculopathy, cervical region (principal); M48.02 Spinal stenosis, cervical region
CPT/HCPCS: 95886; 95911

== ENCOUNTER 2024-03-28 13:09 | Outpatient (CLI) | payer OTHER, SELFPAY ==
--- NOTE | ~2024-03-28 | XR_ITS ---
EXAMINATION: XR fl inj shoulder RT - MR/CT DATE: 03/28/2024 14:19 INDICATION: Impingement syndrome, right shoulder. Right shoulder pain. No prior dislocation or surger y. TECHNIQUE: A time-out was performed to verify the patient's name, date of , and procedure to b e performed. The procedure including the risks, benefits, and alternatives was discussed with the pat ient. Risks discussed included bleeding and infection. The patient understood the risks and agreed to proceed. The skin overlying the right glenohumeral joint was prepped and draped in usual sterile fas hion. Anesthetic was administered with 1% lidocaine subcutaneously. A 22 G needle was advanced unde r fluoroscopic guidance into the joint. Subsequently, injectate consisting of 12 mL of 1:200 Multiha nce, 1:4 1% lidocaine, and 1:4 Omnipaque 240 was instilled. The needle was removed and the entry sit e was cleaned and dressed. There were no immediate complications. Fluoroscopy exposure time was 0.0 minutes. The total number of images was 3. FINDINGS: Real-time fluoroscopy demonstrates the needle and contrast in the right glenohumeral joint. IMPRESSION: 1. Successful right glenohumeral joint injection of contrast for subsequent MR arthrography. Reviewed, dictated and finalized at location B. [employer] ORGANIZATIONAL
--- NOTE | ~2024-03-28 | MR_ITS ---
EXAMINATION: MR shoulder RT w con DATE: 03/28/2024 14:58 INDICATION: Right shoulder impingement syndrome TECHNIQUE: Magnetic resonance imaging (MRI) of the right shoulder was performed following intra-juliocesar cular gadolinium contrast injection and without intravenous contrast. Details of the glenohumeral jung nt injection have been dictated separately. Sequences included axial T2-weighted FS FSE, axial T1-we ighted FS FSE, coronal oblique T1-weighted FS FSE, coronal oblique T2-weighted FSE, sagittal T2-weigh eduin FS FSE, sagittal T1-weighted FSE, and ABER (abduction external rotation) T1-weighted FS FSE. COMPARISON: None. FINDINGS: Coracoacromial arch: The acromion undersurface is curved in morphology (type II). The coracoacromial ligament is normal. M oderate acromioclavicular osteoarthritis with subarticular cystic change at the acromial side of the joint space. Rotator cuff: Mild supraspinatus and infraspinatus tendinopathy. There is minimal contrast imbibition along the mid dle facet footplate of the conjoined portion of the tendon which extends to a minute defect along the articular side of the tendon. No measurable tear defect appreciated. Additional contrast is seen wit hin a couple tiny intrasubstance ganglion cysts along the cephalad margin of the infraspinatus tendon approximately 2 cm medial to the middle facet footplate. The teres minor and subscapularis tendons a re normal. Normal rotator cuff muscle bulk and signal. Biceps tendon, glenoid labrum and glenohumeral cartilage: Long head of the biceps tendon is intact. Mild degenerative tearing along the posterior superior jacky oid labrum. Glenohumeral cartilage appears relatively preserved with smooth chondral surface. Bones and other: Bone alignment is normal. Normal marrow signal with no fracture or pathologic marrow replacing proces s. No abnormal increased fluid signal in the subacromial/subdeltoid bursa to suggest bursitis. IMPRESSION: 1. Mild supraspinatus and infraspinatus tendinopathy with some intrasubstance contrast imbibition melecio ng the middle facet footplate of the infraspinatus tendon extending through a tiny nonmeasurable defe ct along the articular surface. No larger tear defects appreciated. 2. Mild degenerative tearing of the posterior superior glenoid labrum. 3. Moderate acromioclavicular osteoarthritis. Reviewed, dictated and finalized at location [facility] IMPRESSION: 1. Mild supraspinatus and infraspinatus tendinopathy with some intrasubstance c ontrast imbibition along the middle facet footplate of the infraspinatus tendon extending through a tiny nonmeasurable defect along the articular surface. No larger tear defects appreciated. 2. Mild degenerative tearing of the posterior superior glenoid labrum. 3. Moderate acromioclavicular osteoarthritis.
== END 2024-03-28 13:10 | disposition home or self-care (01) ==
LOC: MICIMG 13:10
PROVIDERS: PCP Family Medicine; Visit Provider Anesthesiology Pain Medicine
DX: M75.41 Impingement syndrome of right shoulder (principal); M19.011 Primary osteoarthritis, right shoulder
CPT/HCPCS: 23350; 73222; 77002; A9577; Q9967

== ENCOUNTER 2024-07-17 07:12 | Day surgery (SDC) | payer OTHER, SELFPAY ==
[2024-06-26 12:31] VITALS: BMI 25.4
--- NOTE | ~2024-07-17 | XR_ITS ---
EXAMINATION: XR fluoroscopy no charge DATE: 07/17/2024 8:35 CDT INDICATION: DIAG/PROG RIGHT C5,C6,C7 MEDIAL BRANCH BLK #1 . TECHNIQUE: 7 fluoroscopic images and 3 cine clips of the cervical spine were obtained during diagnost ic/prognostic right C5, C6, and C7 medial branch block, performed by Terrance Richardson MD. I was not p resent during the procedure. Fluoroscopy exposure time was 61 seconds. Air Kerma 5.20 mGy. COMPARISON : None FINDINGS/IMPRESSION: Fluoroscopic documentation of diagnostic/prognostic right C5, C6, and C7 medial branch block. Please refer to the operative note for complete procedural details. Reviewed, dictated and finalized at location K.
--- NOTE | 2024-07-17 07:17 | P.HP_ITS ---
History of Present Illness History of Present Illness Consent: Risks, benefits, and alternatives have been discussed and questions answered. Patient agrees to proceed with procedure. Chief complaint: Cervical Spondylosis w/o Myelopathy or Radicul. Narrative: Maryjane Mancuso is a 73 year old female with chronic, recalcitrant and disabling right cervicalgia secondary to degenerative spondylosis with failure to respond to aggressive conservative measures including PT, oral and topical analgesics, opioid and nonopioid analgesics, rest, time and activity/behavioral modification over the past 1-2 years who presents for diagnostic/prognostic medial branch blocks of the right C5, C6, C7 medial branches(#1) addressing the ipsilateral C5-6, C6-7 facet joints under fluoroscopic guidance and with contrast control. Review of Systems Review of Systems: Patient denies any new infectious, allergic, cardiopulmonary, neurologic or constitutional symptoms or changes in activity tolerance or exercise capacity including new or progressive SOB/GUY, peripheral edema, productive cough, dysuria, nausea/vomiting, diarrhea, weight change, fevers/chills/night sweats, new or progressive neurologic deficit, cognitive or mood changes since last seen, except as documented in the HPI. All systems reviewed & are unremarkable except as noted in HPI and below PMFSH Past Medical History Medical History Skin cancer Lumbar spondylosis Cough Gastroesophageal reflux disease Postmenopausal state Right hip pain (~11/2017) Urinary incontinence concurrent with and due to female genital prolapse (~08/2018) Primary insomnia NEIL (generalized anxiety disorder) Anxiety Herpes simplex type 1 infection Hypothyroidism Surgical History Surgical History Hx of cataract surgery Both eyes 06/27 History of appendectomy History of bilateral tubal ligation History of left knee replacement History of blepharoplasty History of hysterectomy History of delivery x 2 History of arthroplasty of left knee Partial medial Family History Family History Sibling Family history of lung cancer Mother Family history of malignant neoplasm of ovary Other Family history of arthritis Family history of malignant neoplasm Social History Social History Smoking status: Unknown if ever smoked Second hand tobacco smoke exposure: Yes Alcohol intake: unknown Drinks per week: 1 Alcohol use details: beer/ wine socially Substance use: never Substance use type: unknown Do You Feel Safe in your Home?: Yes Lack of Transportation: No Lack of Food: Never True Current Housing: I Have Housing Concerned About Future Housing: No Difficulty Paying Gas/Electric Bills: No Difficulty Paying for Meds: No Currently Unemployed: No Education: Associate Degree Difficulty w/ Childcare or Family Care: No Living arrangements: with family Gender identity (if verbalized by the patient): Female Spiritual care concerns: No Agree to blood products: Yes Meds Home Medications and Allergies Home Medications ?Medication ?Instructions ?Recorded ?Confirmed ?Type calcium 600 mg (as 1 cap PO DAILY 04/03/20 06/26/24 History carbonate)-vitamin D3 5 mcg (200 unit) capsule (Calcium 600 + D(3)) polyethylene glycol 3350 17 gram 17 g PO DAILY 07/22/21 06/26/24 History oral powder packet (Miralax) levothyroxine 50 mcg tablet 50 mcg PO DAILY #90 tabs 09/12/23 06/26/24 Rx omeprazole 40 mg capsule,delayed 40 mg PO DAILY #90 caps 10/18/23 06/26/24 Rx release mirabegron 50 mg tablet,extended 50 mg PO DAILY #90 tabs 01/26/24 06/26/24 Rx release 24 hr (Myrbetriq) sertraline 50 mg tablet (Zoloft) 50 mg PO DAILY #90 tabs 04/14/24 06/26/24 Rx famotidine 40 mg tablet 40 mg PO DAILY #90 tabs 04/15/24 06/26/24 Rx trazodone 50 mg tablet See Rx Instructions .Route 04/15/24 06/26/24 Rx .COMPLEX #180 tabs estradiol 10 mcg vaginal tablet 10 mcg vaginal 2XW #24 tabs 07/06/24 Rx Allergies Allergy/AdvReac Type Severity Reaction Status Date / Time meperidine AdvReac Intermediate Nausea and Verified 06/26/24 12:13 Vomiting Exam Narrative: The patient's physical exam is essentially unchanged from prior examination on 04/24/2024. Specifically, patient demonstrates normal lung capacity, tidal volume and respiratory rate without wheezes, crackles, rales or rubs. Heart rate and rhythm are regular without murmurs, gallops or rubs. No JVD. Pulses 2+ globally without increasing peripheral edema. AAOx3 with no evidence of con fusion, intoxication or altered mental state, NC/AT without acute distress or altered consciousness. Speech, cognition, mood, insight and judgment at baseline and within normal limits. Assessment and Plan Assessment and plan (1) Cervical spondylosis: Code(s): M47.812 - Spondylosis without myelopathy or radiculopathy, cervical region Status: Acute Assessment and Plan: Proceed as planned with diagnostic/prognostic medial branch blocks of the right C5, C6, C7 medial branches(#1) addressing the ipsilateral C5-6, C6-7 facet joints under fluoroscopic guidance and with contrast control. (2) Neck Pain: Code(s): M54.2 - Cervicalgia Status: Acute
--- NOTE | 2024-07-17 07:21 | W.PM.PROC2 ---
Procedure Note - Detailed Date of Procedure 07/17/24 Pre-op Diagnosis Cervical Spondylosis w/o Myelopathy or Radicul. Post-op Diagnosis Same Procedure Performed Diagnostic Right Cervical Medial Branch Nerve Blocks at C5, C6, C7 Blocking the Ipsilateral C5-6, C6-7 facet joints under Fluoroscopic Guidance and with Contrast Control (2 levels blocked). Surgeon Terrance Richardson MD Mechanical Design Technician None. Anesthesia Local Description of Procedure INFORMED CONSENT: Risks, benefits and alternatives to the procedure were discussed in detail with the patient who expressed explicit understanding and consent to proceed. Patient was informed verbally and in written form regarding the risks associated with the procedure including the low risk of serious infection, bleeding/bruising, allergic reaction, nerve or organ injury, paralysis, procedural site pain or discomfort, worsening pain and/or mobility, failure to treat and/or disfigurement. The patient expressed explicit understanding and consent to proceed. All materials required for the procedure were available prior to procedure start. Site and side were marked prior to procedure and confirmed in the presence of the patient. PROCEDURE IN DETAIL: The patient was brought to the procedural suite and placed in the prone position with head stabilized with a ProneView pillow. Patient was made comfortable with use of pillows under the head/chest, hips and ankles. Skin overlying the injection site on the affected side(s) was prepared broadly with ChloraPrep applicator and draped in a sterile manner. Aseptic technique was used throughout. The endplates of the vertebral bodies at the site(s) of interest were aligned in the AP view. Ipsilateral oblique angulation was utilized to optimize visualization of the pars interarticularis at each target site. Local anesthesia was established by infiltration with approximately 5 mL of 0.5% lidocaine via a 1-1/2 inch 27-gauge needle divided over each injection site. A 25-gauge 3.5 inch Quincke spinal needle was advanced until the needle tip contacted the periosteum of the pars interarticularis at the target site, right C5 medial branch. Lateral view was utilized to confirm the appropriate placement of the needle tip just anterior to the center point of the interarticularis. In the Lateral view, 0.25 mL of Omnipaque 300 contrast medium was injected after negative aspiration for CSF, blood or other bodily fluid, showing appropriate extra-articular spread of contrast without evidence of intravascular, foraminal or intrathecal placement. A 0.25 mL solution of 0.5% PF bupivacaine was injected after negative repeat aspiration. Appropriate spread of the injectate was confirmed with washout of previously injected contrast. No parasthesias were elicited. Needle was removed completely intact without difficulty. The same exact procedure was repeated for all remaining levels on the ipsilateral side, right C6,C7 medial branches, modified as necessary to accommodate for the new target location with identical findings and results and no evidence of complication. Images were saved and documented in the patient chart. Patient's skin was cleansed and sterile bandage applied. The patient tolerated the procedure well. The patient was transported to the recovery area in stable condition where they were observed for an appropriate amount of time prior to discharge, without evidence of complication. Patient was instructed on the appropriate completion of a pain diary over the next 12-24 hours. The patient was instructed to avoid excessive activity for the next 48 hours, including climbing and frequent use of stairs. Showers only for 48 hours. They were instructed not to drive or operate heavy machinery for 24 hours. They are to monitor for severe headaches, fevers, chills, night sweats, erythema/swelling at the site or any other signs of infection, bleeding/bruising, bowel or bladder changes as well as new pain, weakness or numbness in the upper or lower extremity. Should they notice these changes, they are instructed to call our office immediately or report directly to the nearest Emergency Department if no answer or if after posted office hours. COMPLICATIONS: None COMMENTS: None CONTRAST WASTED: 29.25 mL Omnipaque 300. Complications No immediate complications Condition Stable Disposition Same day [facility] Billing Surgery - Charge Forward: Surgery Billing
--- OUTSIDE RECORDS SUMMARY | 2024-07-17 07:27 | XMS_ITS | Clinical Summary ---
Author Organization [facility] Address [address] [address] Phone Care Team Providers Care Digital Media Planner Name Role Phone Aleksandra Rivas MD Primary Care Provi bassem Medications levothyroxine (SYNTHROID) 50 MCG Tablet 05/09/2019 Active traZODone (DESYREL) 50 MG Tablet 08/02/2019 Active sertraline (ZOLOFT) 100 MG Tablet 07/05/2019 Active Active Problems Problem Noted Date Diagnosed Date Gastroesophageal reflux disease 08/10/2019 Family History Medical History Relation Name Comments Cancer Maternal Grandmother ovarian Cancer Mother ovarian Lung Cancer Sister Relation Name Status Comments Maternal Grandmother Mother Sister Social History Tobacco Use Types Packs/Day Years Used Date Smoking Tobacco: Never Smokeless Tobacco: Never Tobacco Cessation:Counseling Given: No Alcohol Use Standard Drinks/Week Comments Yes 0 (1 standard drink = 0.6 oz pur e alcohol) 2 3 times a week Comments No Sex and Gender Information Value Date Recorded Sex Assigned at Not on file Legal Sex Female 12:28 AM CDT Gender Identity Not on file Sexual Orientation Not on file Last Filed Vital Signs Vital Sign Reading Time Taken Comments Blood Pressure 120/80 08/10/2019 11:04 AM CDT Pulse 85 08/10/2019 11:04 AM CDT Temperature 36.5 C (97.7 F) 08/10/2019 11:04 AM CDT Respiratory Rate 16 08/10/2019 11:04 AM CDT Oxygen Saturation 98% 08/10/2019 11:04 AM CDT Inhaled Oxygen Concentration - - Weight 63.5 kg (140 lb) 08/10/2019 11:04 AM CDT Height 167.6 cm (5' 6 ) 08/10/2019 11:04 AM CDT Body Mass Index 22.6 08/10/2019 11:04 AM CDT Plan of Treatment Health Maintenance Due Date Last Done Comments Hepatitis C Virus (HCV) Screening 1950 TdaP Immunization 1950 Cologuard 2000 Immunochemical Fecal Occult Blood 2000 Zoster Immunization (1 of 2) 2000 Pneumococcal Immunization (5 0+ years) (2 of 2 - PCV) 05/13/2017 05/13/2016 Influenza Immunization (#1) 2023 SARS-COV-2 Immunization ( - season) 2023 12/03/2020, 05/20/2020, 04/29/2020 Respiratory Syncytial Virus (RSV) Immunization (Adult) (1 - 1-dose 75+ series) 2025 Colonoscopy 01/06/2028 01/05/2018 Colorectal Cancer Screening 01/06/2028 01/05/2018 DTaP/Tdap/Td Immunization Discontinued 2009, 07/14/1999 Pneumococcal Immunization Combined Discontinued 05/13/2016 Hepatitis B Immunization Aged Out No longer eligible based on patient's age to complete this topic Meningococcal Immunization (ACWY) Aged Out No longer eligible based on patient's age to complete this topic Rotavirus Immunization Aged Out No lo nger eligible based on patient's age to complete this topic Procedures Procedure Name Priority Date/Time Associated Diagnosis Comments COLONOSCOPY Routine 01/05/2018 from Last 3 Months or Most Recently Relevant to Health Maintenance Results * HM COLONOSCOPY (01/05/2018) us Mu Joyce DO PROCEDURE/MINOR SURGICAL ORDERA BLES Final Result from Last 3 Months or Most Recently Relevant to Health Maintenance Insurance [place] [address] [facility] Care Teams Digital Media Planner Relationship Specialty Start Date End Date Aleksandra Rivas MD [address] [place], [place] [id number] PCP - General Family Medicine 11/28/17
--- OUTSIDE RECORDS SUMMARY | 2024-07-17 07:27 | XMS_ITS | Encounter Summary ---
Author Organization [facility] Address 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
--- OUTSIDE RECORDS SUMMARY | 2024-07-17 07:27 | XMS_ITS | Clinical Summary ---
Author Organization [facility] Address [address] [facility] Attn: Epic Prelude ADT [place] [address] Care Team Providers Care Relationship Executive Name Role Phone Unavailable Primary Care Provider Unavailabl e Social History Tobacco Use Types Packs/Day Years Used Date Smoking Tobacco: Never Assessed Comments Unknown Sex and Gender Information Value Date Recorded Sex Assigned at Not on file Legal Sex Female 3:51 AM ROUGE SIFTER Gender Identity Not on file Sexual Orientation Not on file Plan of Treatment Health Maintenance Due Date Last Done Comments DTAP/TDAP/TD VACCINES (1 - Tdap) 1969 BREAST CANCER SCREENING 1990 COLORECTAL SCREENING 10/06/1995 Colorectal Cancer Screening 10/06/1995 FIT-DNA Q 3 years 10/06/1995 FIT/FOBT Q 1 year 10/06/1995 Flex Sig/CT Colonography Q 5 years 10/06/1995 PNEUMOCOCCAL VACCINE 50+ YEARS (1 of 1 - PCV) 10/06/19 ZOSTER VACCINE (1 of 2) 2000 OSTEOPOROSIS SCREENING 10/06/2015 INFLUENZA VACCINE (#1) 2023 RSV VACCINE (60+ or ) (1 - 1-dose 75+ series) 2025
--- OUTSIDE RECORDS SUMMARY | 2024-07-17 07:27 | XMS_ITS | Clinical Summary ---
Author Organization [facility] Address [address] [place] [address] Care Team Providers Care Security Flex Officer Name Role Phone Latrell Nichole MD Primary Care Provider [phone] Terrance Garcia MD Unavailable [phone] Linus Dietrich MD Unavailable [phone] Jonn Woo DO Unavailable [phone] Source Comments [facility],non-owned Affiliates and Associated Physician Practices is amultiple site organization consisting of ambulatory clinics and hospital sitesin [place], [place], [place] and [place]. This disclosure is being madepursuant to the Care Everywhere program and may not contain all information available regarding this patient. Last updated 17.[facility] Allergies Active Allergy Reactions Criticality Noted Date Comments Meperidine Nausea and/or Vomiting 02/20/2016 It makes me hot and then I puke Medications * Be aware that medications may not be up to date on this document. Alwaysverify current medications with the patient. levothyroxine (SYNTHROID) 50 MCG tablet Take 50 mcg by mouth daily before breakfast. Active multivitamin daily (THERAGRAN) tablet Take 1 Tab by mouth daily with food Active pyridoxine (VITAMIN B-6) 100 MG tablet Take 100 mg by mouth once daily Active BIOTIN PO Take 3,000 mcg by mouth once daily Active HYDROcodone-acet aminophen (NORCO) 7.5-325 MG tablet Take 1 Tab by mouth every 4 hours as needed for Pain 40 Tab 02/20/2016 Active nitrofurantoin monohyd macro crystals (MACROBID) 100 MG capsuleIndicatio ns:S/P arthroscopy of left knee 04/06/2016 Active ESTRING 2 MG ring 05/13/2016 Active DENAVIR 1 % cream 05/06/2016 Active hyaluronan (ORTHOVISC) 30 MG/2ML prefilled syringe intra-OP once for 1 dose 06/17/2016 Active Active Problems Problem Noted Date Diagnosed Date S/P arthroscopy of left knee - scope w/pmm & shaving of parameniscal cyst & microfracture 02/26/2016 Trigger finger, left middle finger 02/26/2016 Tear of medial meniscus of left knee, current Plantar fasciitis, right 11/17/2015 Pain in left knee 03/11/2014 Left knee DJD 03/11/2014 S/P arthroscopy of right knee 09/25/2012 Tear of medial cartilage or meniscus of knee, cu rrent 06/30/2012 Tear of lateral cartilage or meniscus of knee, c urrent 06/30/2012 Chondromalacia of patella 06/09/2012 Social History Tobacco Use Types Packs/Day Years Used Date Smoking Tobacco: Never Alcohol Use Standard Drinks/Week Comments Yes 3 (1 standard drink = 0.6 oz pur e alcohol) Comments No Sex and Gender Information Value Date Recorded Sex Assigned at Not on file Legal Sex Female 5:53 AM LINOLEUM PRINTER Gender Identity Not on file Sexual Orientation Not on file Last Filed Vital Signs Vital Sign Reading Time Taken Comments Blood Pressure 135/79 02/20/2016 1:50 PM LINOLEUM PRINTER Pulse 59 02/20/2016 1:50 PM LINOLEUM PRINTER Temperature 36.2 C (97.1 F) 02/20/2016 1:50 PM LINOLEUM PRINTER Respiratory Rate 16 02/20/2016 1:30 PM LINOLEUM PRINTER Oxygen Saturation 99% 02/20/2016 1:50 PM LINOLEUM PRINTER Inhaled Oxygen Concentration - - Weight 84.8 kg (187 lb) 02/20/2016 10:55 AM LINOLEUM PRINTER Height 167.6 cm (5' 6 ) 02/20/2016 10:55 AM LINOLEUM PRINTER Body Mass Index 30.18 02/20/2016 10:55 AM LINOLEUM PRINTER Plan of Treatment Health Maintenance Due Date Last Done Comments BONE DENSITY TESTING 1950 OGVAHE (AGES 45-75) - COL ON CA SCREENING 1950 COLON MONITORING 1950 COLONOSCOPY - COLON CA SCREENING 1950 CT COLONOGRAPHY - COLON CA SCREENING 1950 Colorectal Cancer Screening 1950 FIT - COLON CA SCREENING 1950 FLEX SIG - COLON CA SCREENING 1950 LIPID TESTING 1950 MAMMOGRAM 1950 HEPATITIS C SCREENING 09/30/1968 DTAP/TDAP/TD VACCINES (1 - Tdap) 1969 PNEUMOCOCCAL VACCINE 50+ (1 of 1 - PCV) 2000 ZOSTER VACCINE (1 of 2) 2000 COVID-19 VACCINE (1 - 2023-2 5 season) 2023 DEPRESSION SCREENING 03/07/2024 INFLUENZA VACCINE (Season Ended) 2024 Respiratory Syncytial Virus (RSV) Vaccine Pt: or over 60 yrs (1 - 1-dose 75+ series) 2025 HEPATITIS B VACCINE Aged Out No longe r eligible based on patient's age to complete this topic HIB VACCINE Aged Out No longer eligi ble based on patient's age to complete this topic HPV VACCINE Aged Out No longer eligi ble based on patient's age to complete this topic MENINGOCOCCAL (Group B) VACC INE SHARED DECISION-MAKING Aged Out No longer eligibl e based on patient's age to complete this topic MENINGOCOCCAL GROUPS A/C/Y/W VACCINE Aged Out No longer eligible b ased on patient's age to complete this topic Insurance [facility] MEDICARE AET [facility] MANAGED MEDICARE ADV Care Teams Security Flex Officer Relationship Specialty Start Date End Date Latrell Nichole MD [address] [place] [id number] PCP - General Family Medicine 06/09/12 Terrance Garcia MD [address] [place] [id number] Orthopedic Surgery 06/09/12 Linus Dietrich MD [address] [place] [id number] Orthopedic Surgery 08/25/12 Jonn Woo DO [address] [place] [id number] Orthopedic Surgery 09/29/15
--- OUTSIDE RECORDS SUMMARY | 2024-07-17 07:27 | XMS_ITS | Encounter Summary ---
Author Organization [facility] Address [address] [place] [address] Care Team Providers Care Customer Greeter Name Role Phone Unavailable Primary Care Provider Unavailabl e Encounter Details Date Type Department Care Team (Latest Contact Info) Description 12/08/2000 Outpatient Historical HIS [facility] ALEX[facility]A Summers, Scott Brice MD NO ADDRESS ON FILE Other follow-up examination(K56.56) (Primary Dx) Social History Tobacco Use Types Packs/Day Years Used Date Smoking Tobacco: Never Assessed Comments Unknown Sex and Gender Information Value Date Recorded Sex Assigned at Not on file Legal Sex Female 3:51 AM RELIEF MAN Gender Identity Not on file Sexual Orientation Not on file documented as of this encounter Plan of Treatment Not on file documented as of this encounter Visit Diagnoses Diagnosis Other follow-up examination([id number])- Primary Other follow-up examination documented in this encounter
--- OUTSIDE RECORDS SUMMARY | 2024-07-17 07:27 | XMS_ITS | Encounter Summary ---
Author Organization [facility] Health Address [address] [place] [address] Care Team Providers Care Pest Control Service Representative Name Role Phone Latrell Nichole MD Primary Care Provider [phone] Terrance Garcia MD Unavailable [phone] Linus Dietrich MD Unavailable [phone] Jonn Woo DO Unavailable [phone] Encounter Details Date Type Department Care Team (Late st Contact Info) Description 12/17/2020 Lab Requisition [facility] Care DermPath Lab [address] [place] [id number] Jack Ivy MD [address] [place] [address] Social History Tobacco Use Types Packs/Day Years Used Date Smoking Tobacco: Never Alcohol Use Standard Drinks/Week Comments Yes 3 (1 standard drink = 0.6 oz pur e alcohol) Comments No Sex and Gender Information Value Date Recorded Sex Assigned at Not on file Legal Sex Female 5:53 AM PSYCHIATRIC RN Gender Identity Not on file Sexual Orientation Not on file documented as of this encounter Functional Status * Is person deaf or have serious hearing difficulty? Answer Date of Assessment Author No 02/20/2016 1:56 PM Eleazar Woody RN * Is person blind or have serious difficulty seeing? Answer Date of Assessment Author No 02/20/2016 1:56 PM Eleazar Woody RN * Does person have serious difficulty walking/climbing stairs? Answer Date of Assessment Author No 02/20/2016 1:56 PM Eleazar Woody RN * Does person have difficulty dressing/bathing? Answer Date of Assessment Author No 02/20/2016 1:56 PM Eleazar Woody RN * Does person have difficulty doing errands alone? Answer Date of Assessment Author No 02/20/2016 1:56 PM Eleazar Woody RN documented as of this encounter Mental Status * Does person have difficulty concentrating/remembering/making decisions? Answer Entry Date Author No 02/20/2016 1:56 PM Eleazar Woody RN documented in this encounter Plan of Treatment Not on file documented as of this encounter Procedures Procedure Name Priority Date/Time Associated Diagnosis Comments DERMATOPATHOLOGY Routine 12/15/2020 3:33 AM CDT documented in this encounter Results * DERMATOPATHOLOGY (12/15/2020 3:33 AM CDT) Case Report Dermatopathology Report Case: [id number] Authorizing Provider: Jack Ivy MD Collected: 12/15/2020 03:33 AM Ordering Location: [facility] DermPath Lab Received: 12/17/2020 05:54 AM Pathologist: Lynne Macias MD Specimens: A) - Skin, left lower breast B) - Skin, lower back 12:30 PM CDT DERMATOPATHOLOGY LABORATORY Final Diagnosis Specimen A. SKIN, left lower breast: SEBORRHEIC KERATOSIS, IRRITATED AND INFLAMED (L82.0) Specimen B. 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 Path# [id number] B: Nevus vs SK vs MM. Path# [id number] 12:30 PM CDT DERMATOPATHOLOGY LABORATORY Gross Description Specimen A: Received is one formalin filled container labeled with the patient's name and designated left lower breast. The specimen consists of a shave biopsy measuring [id number]. Jar 0. Specimen B: Received is one formalin filled container labeled with the patient's name and designated lower back. The specimen consists of a shave biopsy measuring [id number]. Jar 0. 12:30 PM CDT DERMATOPATHOLOGY LABORATORY Microscopic Description Specimen A. SKIN, left lower breast: Sections show acanthosis, papillomatosis, hyperkeratosis, and squamous eddies. There is a lymphohistiocytic infiltrate within the papillary dermis. Specimen B. SKIN, lower back: This is a junctional nevus. There is melanin pigment in the stratum corneum. There is architectural disorder characterized by a lentiginous proliferation of melanocytes between irregular nests of cells along the dermal-epidermal junction. There is underlying fibroplasia of the papillary dermis. (Junctional Jose's Nevus or Junctional Dysplastic Nevus) 12:30 PM CDT DERMATOPATHOLOGY LABORATORY Disclaimer An external and internal positive and negative controls are appropriate for the histochemical, immunohistochemical and immunofluorescence stain(s) in this case (if any), except where stated explicitly. The performance characteristics of the stain(s) cited in this report were developed and its performance characteristic determined by the Dermatopathology Laboratory at [facility], directed by Dr. Romina Macias. These tests need not be, and therefore are not, approved by the [place] Food and Drug Administration. The tests are used for clinical purposes. Billing Codes Specimen Charges Stain Charges 54381 78770 1 1 12:30 PM CDT DERMATOPATHOLOGY LABORATORY Embedded Images 12:30 PM CDT DERMATOPATHOLOGY LABORATORY Pathology/Cytology TISSUE SPECIMEN FROM SKIN / Unknown 12/15/2020 3:33 AM CDT 12/17/2020 5:54 AM CDT Miscellaneous samples (specimen) TISSUE SPECIMEN FROM SKIN / Unknown 12/15/2020 3:33 AM CDT 12/17/2020 5:54 AM CDT us Jack Ivy MD LAB - PATHOLOGY/CYTOLOGY ORDER OWEN Final Result DERMATOPATHOLOGY LABORATORY [facility] - Department of Dermatology [address], [address] [phone] documented in this encounter Visit Diagnoses Not on filedocumented in this encounter Care Teams Pest Control Service Representative Relationship Specialty Start Date End Date Latrell Nichole MD [address] [place] [address] PCP - General Family Medicine 06/09/12 Terrance Garcia MD [address] [place] [address] Orthopedic Surgery 06/09/12 Linus Dietrich MD [address] [place] [address] Orthopedic Surgery 08/25/12 Jonn Woo DO [address] [place] [address] Orthopedic Surgery 09/29/15 documented as of this encounter
--- OUTSIDE RECORDS SUMMARY | 2024-07-17 07:28 | XMS_ITS | Encounter Summary ---
Author Organization [facility] Health Address [address] [place] [address] Care Team Providers Care Associate Java Developer Name Role Phone Latrell Nichole MD Primary Care Provider [phone] Terrance Garcia MD Unavailable [phone] Linus Dietrich MD Unavailable [phone] Jonn Woo DO Unavailable [phone] Encounter Details Date Type Department Care Team (Late st Contact Info) Description 10/06/2012 Therapy Visit [facility]TERNAL [facility] DEPT Unknown, Provider Social History Tobacco Use Types Packs/Day Years Used Date Smoking Tobacco: Never Alcohol Use Standard Drinks/Week Comments No 0 (1 standard drink = 0.6 oz pur e alcohol) Comments Unknown Sex and Gender Information Value Date Recorded Sex Assigned at Not on file Legal Sex Female 5:53 AM CLAIMS AUDITOR Gender Identity Not on file Sexual Orientation Not on file documented as of this encounter Plan of Treatment Not on file documented as of this encounter Visit Diagnoses Not on filedocumented in this encounter Care Teams Associate Java Developer Relationship Specialty Start Date End Date Latrell Nichole MD [address] [place] [address] PCP - General Family Medicine 06/09/12 Terrance Garcia MD [address] [place] [address] Orthopedic Surgery 06/09/12 Linus Dietrich MD [address] [place] [address] Orthopedic Surgery 08/25/12 Jonn Woo DO [address] [place] [address] Orthopedic Surgery 09/29/15 documented as of this encounter
--- OUTSIDE RECORDS SUMMARY | 2024-07-17 07:28 | XMS_ITS | Encounter Summary ---
Author Organization [facility] Health Address [address] [place] [address] Care Team Providers Care Reproduction Production Manager Name Role Phone Latrell Nichole MD Primary Care Provider [phone] Terrance Garcia MD Unavailable [phone] Linus Dietrich MD Unavailable [phone] Jonn Woo DO Unavailable [phone] Encounter Details Date Type Department Care Team (Late st Contact Info) Description 09/29/2012 Therapy Visit EXTERNAL NON-[facility]PT Unknown, Provider Social History Tobacco Use Types Packs/Day Years Used Date Smoking Tobacco: Never Alcohol Use Standard Drinks/Week Comments No 0 (1 standard drink = 0.6 oz pur e alcohol) Comments Unknown Sex and Gender Information Value Date Recorded Sex Assigned at Not on file Legal Sex Female 5:53 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 Gender Identity Not on file Sexual Orientation Not on file documented as of this encounter Plan of Treatment Not on file documented as of this encounter Visit Diagnoses Not on filedocumented in this encounter Care Teams Reproduction Production Manager Relationship Specialty Start Date End Date Latrell Nichole MD [address] [place] [address] PCP - General Family Medicine 06/09/12 Terrance Garcia MD [address] [place] [address] Orthopedic Surgery 06/09/12 Linus Dietrich MD [address] [place] [address] Orthopedic Surgery 08/25/12 Jonn Woo DO [address] [place] [address] Orthopedic Surgery 09/29/15 documented as of this encounter
[2024-07-17 07:38] VITALS: BP 130/96; PULSE 69; RESP 16; TEMP 37.1; O2SAT 98
[2024-07-17 08:39] VITALS: BP 165/87; PULSE 63; RESP 17; O2SAT 100
[2024-07-17 08:47] VITALS: BP 163/88; PULSE 77; RESP 12; O2SAT 100
[2024-07-17] MEDS: BUPivacaine HCL 0.5% 10 ML AMP INFILTRATE (08:47)
[2024-07-17] MEDS: LIDOCAINE 1% PF INJ 5 ML VIAL INFILTRATE (08:47)
[2024-07-17 08:53] VITALS: BP 150/80; PULSE 63; RESP 18; O2SAT 100
== END 2024-07-17 09:07 | disposition home or self-care (01) ==
LOC: ASC 07:25
PROVIDERS: PCP Family Medicine; Visit Provider Anesthesiology Pain Medicine
PROC: (CPT 64490; principal; 2024-07-17 09:00)
DX: M47.812 Spondylosis without myelopathy or radiculopathy, cervical region (principal)
CPT/HCPCS: 64490; 64491; 99199

== ENCOUNTER 2024-07-28 08:37 | Outpatient (CLI) | payer OTHER, SELFPAY ==
--- NOTE | ~2024-07-28 | XR_ITS ---
XR hip LT min 2V Ordering provider: Skylar Salmeron PA-C History: . M25.552 - Pain in left hip . Comparison: December 06, 2006. FINDINGS: BONES: No acute fracture or dislocation. HIP JOINT SPACES: mild to moderate narrowing suggestive of osteoarthritic changes. SACROILIAC JOINT SPACES/LUMBAR SPINE: The sacroiliac joint spaces are normal. Mild degenerative kenyon es of the visualized lower lumbar spine. PUBIC SYMPHYSIS: Normal. SOFT TISSUES: Normal. IMPRESSION: No acute osseous abnormality pelvis and left hip. Left hip mild to moderate osteoarthritic changes Reviewed, dictated and finalized at location A.
--- NOTE | ~2024-07-28 | XR_ITS ---
3 VIEWS LUMBAR SPINE Ordering provider: Skylar Salmeron PA-C History: . M25.552 - Pain in left hip . Comparison: June 14, 2023 FINDINGS: VERTEBRAL BODIES:Possible loss of height of L1 and L2. Otherwise, No visible fracture or subluxation. S-shaped scoliosis. Degenerative changes of the spine. DISK SPACES: Narrowing of the disc L1-L2, L2-L3, L3-L4 and L5-S1.. Bilateral hip mild to moderate osteoarthritic changes. SOFT TISSUES: Normal. IMPRESSION: Possible loss of height of L1 and L2. MRI is advised. Multilevel degenerative disc disease. Bilateral hip mild to moderate osteoarthritic changes. Reviewed, dictated and finalized at location A.
== END 2024-07-28 08:38 | disposition home or self-care (01) ==
PROVIDERS: PCP Family Medicine; Visit Provider Student in an Organized Health Care Education/Training Program
DX: M51.369 Other intervertebral disc degeneration, lumbar region without mention of lumbar back pain or lower extremity pain (principal); M16.0 Bilateral primary osteoarthritis of hip
CPT/HCPCS: 72100; 73502

== ENCOUNTER 2024-08-14 06:50 | Day surgery (SDC) | payer OTHER, SELFPAY ==
[2024-08-10 07:46] VITALS: BMI 26.6
--- NOTE | ~2024-08-14 | XR_ITS ---
XR fluoroscopy no charge Indication: Right C5, C6 and C7 medial branch block TECHNIQUE: Fluoroscopy used during Right C5, C6 and C7 medial branch block performed by [Terrance Richardson MD] on 08/14/2024. 58 seconds of fluoroscopy with 7 fluoroscopic images captured. FINDINGS: Correlate with procedure note. IMPRESSION: Fluoroscopy used during Right C5, C6 and C7 medial branch block. Reviewed, dictated and finalized at location []
--- NOTE | 2024-08-14 06:30 | WPDHPUPDATE1 ---
History and Physical Update Update Date/Time: 08/14/24 06:30 History and Physical has been reviewed, including an updated exam of the patient. There are NO changes in the patient's condition. Risks, benefits, and alternatives have been discussed and questions answered. Patient agrees to proceed with procedure.
--- NOTE | 2024-08-14 06:31 | W.PM.PROC2 ---
Procedure Note - Detailed Date of Procedure 08/14/24 Pre-op Diagnosis Cervical Spondylosis w/o Myelopathy or Radiculop Post-op Diagnosis Same Procedure Performed Diagnostic Right Cervical Medial Branch Nerve Blocks at C5, C6, C7 Blocking the Ipsilateral C5-6, C6-7 facet joints under Fluoroscopic Guidance and with Contrast Control (2 levels blocked). Surgeon Terrance Richardson MD Business Improvement Manager None. Anesthesia Local Description of Procedure INFORMED CONSENT: Risks, benefits and alternatives to the procedure were discussed in detail with the patient who expressed explicit understanding and consent to proceed. Patient was informed verbally and in written form regarding the risks associated with the procedure including the low risk of serious infection, bleeding/bruising, allergic reaction, nerve or organ injury, paralysis, procedural site pain or discomfort, worsening pain and/or mobility, failure to treat and/or disfigurement. The patient expressed explicit understanding and consent to proceed. All materials required for the procedure were available prior to procedure start. Site and side were marked prior to procedure and confirmed in the presence of the patient. PROCEDURE IN DETAIL: The patient was brought to the procedural suite and placed in the prone position with head stabilized with a ProneView pillow. Patient was made comfortable with use of pillows under the head/chest, hips and ankles. Skin overlying the injection site on the affected side(s) was prepared broadly with ChloraPrep applicator and draped in a sterile manner. Aseptic technique was used throughout. The endplates of the vertebral bodies at the site(s) of interest were aligned in the AP view. Ipsilateral oblique angulation was utilized to optimize visualization of the pars interarticularis at each target site. Local anesthesia was established by infiltration with approximately 5 mL of 0.5% lidocaine via a 1-1/2 inch 27-gauge needle divided over each injection site. A 25-gauge 3.5 inch Quincke spinal needle was advanced until the needle tip contacted the periosteum of the pars interarticularis at the target site, right C5 medial branch. Lateral view was utilized to confirm the appropriate placement of the needle tip just anterior to the center point of the interarticularis. In the Lateral view, 0.25 mL of Omnipaque 300 contrast medium was injected after negative aspiration for CSF, blood or other bodily fluid, showing appropriate extra-articular spread of contrast without evidence of intravascular, foraminal or intrathecal placement. A 0.25 mL solution of 2.0% PF lidocaine was injected after negative repeat aspiration. Appropriate spread of the injectate was confirmed with washout of previously injected contrast. No parasthesias were elicited. Needle was removed completely intact without difficulty. The same exact procedure was repeated for all remaining levels on the ipsilateral side, right C6,C7 medial branches, modified as necessary to accommodate for the new target location with identical findings and results and no evidence of complication. Images were saved and documented in the patient chart. Patient's skin was cleansed and sterile bandage applied. The patient tolerated the procedure well. The patient was transported to the recovery area in stable condition where they were observed for an appropriate amount of time prior to discharge, without evidence of complication. Patient was instructed on the appropriate completion of a pain diary over the next 12-24 hours. The patient was instructed to avoid excessive activity for the next 48 hours, including climbing and frequent use of stairs. Showers only for 48 hours. They were instructed not to drive or operate heavy machinery for 24 hours. They are to monitor for severe headaches, fevers, chills, night sweats, erythema/swelling at the site or any other signs of infection, bleeding/bruising, bowel or bladder changes as well as new pain, weakness or numbness in the upper or lower extremity. Should they notice these changes, they are instructed to call our office immediately or report directly to the nearest Emergency Department if no answer or if after posted office hours. COMPLICATIONS: None COMMENTS: None CONTRAST WASTED: 28.5mL Omnipaque 300. Complications No immediate complications Condition Stable Disposition Same day [facility] Billing Surgery - Charge Forward: Surgery Billing
--- OUTSIDE RECORDS SUMMARY | 2024-08-14 07:11 | XMS_ITS | Clinical Summary ---
Author Organization [facility] Address [address] [address] Phone Care Team Providers Care Pinsetter Mechanic Helper Name Role Phone Aleksandra Rivas MD Primary [...] 11:04 AM CDT Height 167.6 cm (5' 6) 08/10/2019 11:04 AM CDT Body Mass Index 22.6 08/10/2019 11:04 AM CDT Plan of Treatment Health Maintenance Due Date Last Done Comments Hepatitis C Virus (HCV) Screening 1950 TdaP Immunization 1950 Cologuard 10/06/1995 Immunochemical Fecal Occult Blood 10/06/1995 Zoster Immunization (1 of 2) 2000 Pneumococcal Immunization (5 0+ years) (2 of 2 - PCV) 05/13/2017 05/13/2016 SARS-COV-2 Immunization (2023- season) 2023 12/03/2020, 05/20/2020, 04/29/2020 Influenza Immunization (Seas on Ended) 2024 Respiratory Syncytial Virus (RSV) Immunization (Adult) (1 - 1-dose 75+ series) 2025 Colonoscopy 01/06/2028 01/05/2018 Colorectal Cancer Screening 01/06/2028 DTaP/Tdap/Td Immunization Discontinued 2009, 07/14/1999 Pneumococcal Immunization Combined Discontinued 05/13/2016 Hepatitis B Immunization Aged Out No longer eligible based on patient's age to complete this topic Human Papillomavirus (HPV) Immunization Aged Out No longer eligible based [...] Recently Relevant to Health Maintenance Results * COLONOSCOPY (01/05/2018) Mu Joyce DO PROCEDURE/MINOR SURGICAL ORDERA BLES Final Result from Last 3 Months or Most Recently Relevant to Health Maintenance Insurance [employer] [facility] Care Teams Pinsetter Mechanic Helper Relationship Specialty Start Date End Date Aleksandra Rivas MD [address] [place], [place] [id number] PCP - General Family Medicine 11/28/17
--- OUTSIDE RECORDS SUMMARY | 2024-08-14 07:11 | XMS_ITS | Clinical Summary ---
Author Organization [facility] Address [address] [place] [address] Care Team Providers Care Unit Assembler Name Role Phone Latrell Nichole MD Primary Care Provider [phone] Terrance Garcia MD Unavailable [phone] Linus Dietrich MD Unavailable [phone] Jonn Woo DO Unavailable [phone] Source Comments [facility],non-owned Affiliates and Associated Physician Practices is amultiple site organization consisting of ambulatory clinics and hospital sitesin [place], [place], [place] and [place]. This disclosure is being madepursuant to the Care Everywhere program and may not contain all information available regarding this patient. 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 Gender Identity Not on file Sexual Orientation Not on file Last Filed Vital Signs Vital Sign Reading Time Taken Comments Blood Pressure 135/79 02/20/2016 1:50 PM WAREHOUSE ATTENDANT Pulse 59 02/20/2016 1:50 PM WAREHOUSE ATTENDANT Temperature 36.2 C (97.1 F) 02/20/2016 1:50 PM WAREHOUSE ATTENDANT Respiratory Rate 16 02/20/2016 1:30 PM WAREHOUSE ATTENDANT Oxygen Saturation 99% 02/20/2016 1:50 PM WAREHOUSE ATTENDANT Inhaled Oxygen Concentration - - Weight 84.8 kg (187 lb) 02/20/2016 10:55 AM WAREHOUSE ATTENDANT Height 167.6 cm (5' 6) 02/20/2016 10:55 AM WAREHOUSE ATTENDANT Body Mass Index 30.18 02/20/2016 10:55 AM WAREHOUSE ATTENDANT Plan of Treatment Health Maintenance Due Date [...] patient's age to complete this topic Insurance [facility] MEDICARE AET [facility] MANAGED MEDICARE ADV Care Teams Unit Assembler Relationship Specialty Start Date End Date Latrell Nichole MD [address] [place] [address] PCP - General Family Medicine 06/09/12 Terrance Garcia MD [address] [place] [address] Orthopedic Surgery 06/09/12 Linus Dietrich MD [address] [place] [address] Orthopedic Surgery 08/25/12 Jonn Woo DO [address] [place] [address] Orthopedic Surgery 09/29/15
--- OUTSIDE RECORDS SUMMARY | 2024-08-14 07:11 | XMS_ITS | Encounter Summary ---
Author Organization [facility] Address [address] [place] [address] Care Team Providers Care Clinical Research Analyst Name Role Phone Unavailable Primary Care Provider Unavailabl e Encounter Details Date Type Department Care Team (Latest Contact Info) Description 12/08/2000 Outpatient Historical HIS [facility] Summers, Scott Brice MD NO ADDRESS ON FILE Other follow-up examination(S02.25) (Primary Dx) Social History Tobacco Use Types Packs/Day Years Used Date Smoking Tobacco: Never Assessed Comments Unknown Sex and Gender Information Value Date Recorded Sex Assigned at Not on file Legal Sex Female 3:51 AM 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
--- OUTSIDE RECORDS SUMMARY | 2024-08-14 07:11 | XMS_ITS | Clinical Summary ---
Author Organization [facility] Address [address] Attn: Epic Prelude ADT [place] [address] Care Team Providers Care Toy Designer Name Role Phone Unavailable Primary Care Provider Unavailabl e Social History Tobacco Use Types Packs/Day Years Used Date Smoking Tobacco: Never Assessed Comments Unknown Sex and Gender Information Value Date Recorded Sex Assigned at Not on file Legal Sex Female 3:51 AM RIGGING SLINGER Gender Identity Not on file Sexual Orientation [...]
--- OUTSIDE RECORDS SUMMARY | 2024-08-14 07:11 | XMS_ITS | Encounter Summary ---
Author Organization [facility] Health Address [address] [place] [address] Care Team Providers Care Fur Blower Operator Name Role Phone aLtrell Nichole MD Primary Care Provider [phone] Terrance Garcia MD Unavailable [phone] Linus Dietrich MD Unavailable [phone] Jonn Woo DO Unavailable [phone] Encounter Details Date Type Department Care [...] on file Legal Sex Female 5:53 AM PRINT WASHER Gender Identity Not on file Sexual Orientation Not on file documented as of this encounter Plan of Treatment Not on file documented as of this encounter Visit Diagnoses Not on filedocumented in this encounter Care Teams Fur Blower Operator Relationship Specialty Start Date End Date Latrell Nichole MD [address] [place] [address] PCP - General Family Medicine 06/09/12 Terrance Garcia MD [address] [place] [address] Orthopedic Surgery 06/09/12 Linus Dietrich MD [address] [place] [address] Orthopedic Surgery 08/25/12 Jonn Woo DO [address] [place] [address] Orthopedic Surgery 09/29/15 documented as of this encounter
--- OUTSIDE RECORDS SUMMARY | 2024-08-14 07:11 | XMS_ITS | Encounter Summary ---
Author Organization [facility] Address [address] [place] [address] Care Team Providers Care Boxcar Weigher Name Role Phone Unavailable Primary Care Provider Unavailabl e Encounter Details Date Type Department Care Team (Latest Contact Info) Description 05/11/2000 Outpatient Historical HIS [facility] Summers, Scott Brice MD NO ADDRESS ON FILE Other specified disorder of breast (Primary Dx) Social History Tobacco Use Types Packs/Day Years Used Date Smoking Tobacco: Never Assessed Comments Unknown Sex and Gender Information Value Date Recorded Sex Assigned at Not on file Legal Sex Female 3:51 AM GLASS LOADING EQUIPMENT TENDER Gender Identity Not on file Sexual Orientation Not on file documented as of this encounter Plan of Treatment Not on file documented as of this encounter Visit Diagnoses Diagnosis Other specified disorder of breast- Primary documented in this encounter
--- OUTSIDE RECORDS SUMMARY | 2024-08-14 07:11 | XMS_ITS | Encounter Summary ---
Author Organization [facility] Health Address [address] [place] [address] Care Team Providers Care Order Dispatcher Chief Name Role Phone Latrell Nichole MD Primary Care Provider [phone] Terrance Garcia MD Unavailable [phone] Linus Dietrich MD Unavailable [phone] Jonn Woo DO Unavailable [phone] Encounter Details Date Type Department Care [...] on file Legal Sex Female 5:53 AM HEALTH CENTER ASSISTANT Gender Identity Not on file Sexual Orientation Not on file documented as of this encounter Plan of Treatment Not on file documented as of this encounter Visit Diagnoses Not on filedocumented in this encounter Care Teams Order Dispatcher Chief Relationship Specialty Start Date End Date Latrell Nichole MD [address] [place] [address] PCP - General Family Medicine 06/09/12 Terrance Garcia MD [address] [place] [address] Orthopedic Surgery 06/09/12 Linus Dietrich MD [address] [place] [address] Orthopedic Surgery 08/25/12 Jonn Woo DO [address] [place] [address] Orthopedic Surgery 09/29/15 documented as of this encounter
--- OUTSIDE RECORDS SUMMARY | 2024-08-14 07:11 | XMS_ITS | Encounter Summary ---
Author Organization [facility] Health Address [address] [place] [address] Care Team Providers Care Ground Support Equipment Fitter Name Role Phone Latrell Nichole MD Primary Care Provider [phone] Terrance Garcia MD Unavailable Linus Dietrich MD Unavailable [phone] Jonn Woo DO Unavailable [phone] Encounter Details Date Type Department Care Team (Late st Contact Info) Description 12/17/[address] 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 Path# [id number] B: Nevus vs SK vs MM. Path# [id number] 12:30 PM CDT DERMATOPATHOLOGY LABORATORY Gross Description Specimen A: Received is one formalin filled container labeled with the patient's name and designated left lower breast. The specimen consists of a shave biopsy measuring [id number]. Jar 0. Specimen B: Received is one formalin filled container labeled with the patient's name and designated lower back. The specimen consists of a shave biopsy measuring [id number]. Jar 0. 12:30 PM CDT DERMATOPATHOLOGY LABORATORY [...] characteristic determined by the Dermatopathology Laboratory at [facility], directed by Dr. Romina Macias. These tests need not be, and therefore are not, approved by the [place] Food and Drug Administration. The tests are used for clinical purposes. Billing Codes Specimen Charges Stain Charges 98623 73709 1 1 12:30 PM CDT DERMATOPATHOLOGY LABORATORY Embedded Images 12:30 PM CDT DERMATOPATHOLOGY LABORATORY Pathology/Cytology TISSUE SPECIMEN FROM SKIN / Unknown 12/15/2020 3:33 AM CDT 12/17/2020 5:54 AM CDT Miscellaneous samples (specimen) TISSUE SPECIMEN FROM SKIN / Unknown 12/15/2020 3:33 AM CDT 12/17/2020 5:54 AM CDT us Jack Ivy MD LAB - PATHOLOGY/CYTOLOGY ORDER OWEN Final Result DERMATOPATHOLOGY LABORATORY [facility] - Department of Dermatology [address], [address] [phone] documented in this encounter Visit Diagnoses Not on filedocumented in this encounter Care Teams Ground Support Equipment Fitter Relationship Specialty Start Date End Date Latrell Nichole MD [address] [place] [address] PCP - General Family Medicine 06/09/12 Terrance Garcia MD [address] [place] [address] Orthopedic Surgery 06/09/12 Linus Dietrich MD [address] [place] [address] Orthopedic Surgery 08/25/12 Jonn Woo DO [address] [place] [address] Orthopedic Surgery 09/29/15 documented as of this encounter
[2024-08-14 07:24] VITALS: BP 123/96; PULSE 78; RESP 16; TEMP 36.8; O2SAT 98
[2024-08-14 08:11] VITALS: BP 141/73; PULSE 72; RESP 17; O2SAT 96
[2024-08-14 08:20] VITALS: BP 136/81; PULSE 69; RESP 15; O2SAT 94
[2024-08-14] MEDS: LIDOCAINE 1% PF INJ 5 ML VIAL 3 ML INFILTRATE (08:22)
[2024-08-14] MEDS: LIDOCAINE 2% PF LOCAL INJ 5 ML VIAL 3 ML INFILTRATE (08:22)
[2024-08-14 08:25] VITALS: BP 129/86; PULSE 68; RESP 16; O2SAT 98
== END 2024-08-14 08:38 | disposition home or self-care (01) ==
PROVIDERS: PCP Family Medicine; Visit Provider Anesthesiology Pain Medicine
PROC: (CPT 64490; principal; 2024-08-14 08:10)
DX: M47.812 Spondylosis without myelopathy or radiculopathy, cervical region (principal); G89.29 Other chronic pain
CPT/HCPCS: 64490; 64491; 99199

== ENCOUNTER 2024-08-16 15:58 | Outpatient (CLI) | payer OTHER, SELFPAY ==
--- NOTE | ~2024-08-16 | XR_ITS ---
Left Knee Technique: AP, lateral, and sunrise views were obtained. Clinical History: Arthroplasty COMPARISON: 02/19/2019 Findings: No fracture or dislocation is seen. Medial compartment hemiarthroplasty is in place, unchan ged. Minimal patellar spurring noted. Soft tissues are unremarkable. No joint effusion is seen. Impression: No acute abnormality. Stable medial compartment hemiarthroplasty. Minimal patellar spurring. Reviewed, dictated and finalized at location M. Impression: No acute abnormality. Stable medial compartment hemiarthroplasty. Minimal patellar spurring.
== END 2024-08-16 15:59 | disposition home or self-care (01) ==
LOC: MICIMG 16:00
PROVIDERS: PCP Family Medicine; Visit Provider Orthopaedic Surgery
DX: Z96.652 Presence of left artificial knee joint (principal); M76.892 Other specified enthesopathies of left lower limb, excluding foot
CPT/HCPCS: 73564

== ENCOUNTER 2024-09-18 08:04 | Day surgery (SDC) | payer OTHER, SELFPAY ==
--- NOTE | ~2024-09-18 | XR_ITS ---
XR fluoroscopy no charge Indication: Thermal radiofrequency ablation right C5, C6 and C7 medial branch TECHNIQUE: Fluoroscopy used during Thermal radiofrequency ablation right C5, C6 and C7 medial branch performed by [Terrance Richardson MD] on 09/18/2024. 144 seconds of fluoroscopy with 8 fluoroscopic images captured. FINDINGS: Correlate with procedure note. IMPRESSION: Fluoroscopy used during Thermal radiofrequency ablation right C5, C6 and C7 medial branch . Reviewed, dictated and finalized at location B. IMPRESSION: Fluoroscopy used during Thermal radiofrequency ablation right C5, C 6 and C7 medial branch.
--- NOTE | 2024-09-18 06:47 | WPDHPUPDATE1 ---
History and Physical Update Update Date/Time: 09/18/24 06:47 History and Physical has been reviewed, including an updated exam of the patient. There are NO changes in the patient's condition. Risks, benefits, and alternatives have been discussed and questions answered. Patient agrees to proceed with procedure.
--- NOTE | 2024-09-18 06:48 | P.OP_ITS ---
Procedure Note - Detailed Date of Procedure 09/18/24 Pre-op Diagnosis Cervical Spondylosis w/o Myelopathy or Radicul. Post-op Diagnosis Same Procedure Performed Thermal Radiofrequency Ablation of the Right Cervical Medial Branches at C5, C6, C7 to ablate the Ipsilateral C5-6, C6-7 facet joints under Fluoroscopic Guidance (2 levels treated). Surgeon Terrance Richardson MD Security Software Engineer None. Anesthesia Local (w/ IV Moderate Sedation) Description of Procedure INFORMED CONSENT: Risks, benefits and alternatives to the procedure were discussed in detail with the patient who expressed explicit understanding and consent to proceed. Patient was informed verbally and in written form regarding the risks associated with the procedure including the low risk of serious infection, bleeding/bruising, allergic reaction, nerve or organ injury, paralysis, procedural site pain or discomfort, worsening pain and/or mobility, failure to treat and/or disfigurement. The patient expressed explicit understanding and consent to proceed. All materials required for the procedure were available prior to procedure start. Site and side was marked prior to procedure and confirmed in the presence of the patient. PROCEDURE IN DETAIL: The patient was brought to the procedural suite and placed in the prone position with head stabilized with a horseshoe pillow and cervical ramp. Patient was made comfortable with use of pillows under the head/chest, hips and ankles. Skin overlying the injection site on the affected side(s) was prepared broadly with 10mL tinted ChloraPrep applicator and draped in a sterile manner. Strict aseptic technique was utilized throughout. The endplates of the vertebral bodies at the site(s) of interest were aligned in the AP view. Ipsilateral oblique angulation was utilized to optimize visualization of the pars interarticularis at each target site. Local anesthesia was established by infiltration with approximately 5 mL of 1% lidocaine via a 1-1/2 inch 27-gauge needle. An 18-gauge 100mm RF needle with curved 10mm active tip was advanced in the AP view until the needle tip contacted the periosteum of the pars interarticularis at the target site, right C5 medial branch, parallel to the course of the targeted peripheral nerve branch. Lateral view was utilized to adjust and confirm the appropriate placement of the needle tip just anterior to the center point of the interarticularis, bisecting the distance between adjacent joint spaces. The appropriately-sized RF cannula was inserted into the RF needle and motor stimulation performed with no subjective or objective evidence of recruited muscle activity with stimulation up to 2.0 volts at a frequency of 2Hz. A 1.5 mL solution of 2.0% PF lidocaine was injected via the appropriately positioned RF cannula after negative aspiration. The grounding electrode was confirmed to be in place with good contact and functioning appropriately. After a 90s pause, lesioning was performed to 90 degrees centigrade for 90s ensuring lack of symptoms in the extremity throughout. Needle was withdrawn approximately 1-2 mm and rotated 180 degrees at each level. Lesioning was then repeated in a similar manner as above. The patient tolerated this well. No parasthesias were elicited. Needle was removed completely intact without difficulty. The same procedure was then repeated for all intended levels/ structures on the ipsilateral side, right C6, C7 medial branches, with identical methodology, modified to compensate for new location, with similar results and no evidence of complication. The same procedure was then repeated for all intended levels/ structures on the contralateral side, left C5, C6, C7 medial branches, with identical methodology, modified to compensate for new contralateral location/approach, with similar results and no evidence of complication. Images were saved and documented in the patient's chart. The patient's skin was cleaned and sterile bandages applied. The patient tolerated the procedure well. The patient was transported to the recovery area in stable condition where they were observed for an appropriate amount of time prior to discharge, without evidence of complication. The patient was instructed to avoid excessive activity for the next 48 hours, including overhead work, reaching and device/computer usage. Showers only for 48 hours. They were instructed not to drive or operate heavy machinery for 24 hours. They are to monitor for severe headaches, fevers, chills, night sweats, erythema/swelling at the site or any other signs of infection, bleeding/bruising, bowel or bladder changes as well as new pain, weakness or numbness in the upper or lower extremity. Should they notice these changes, they are instructed to call our office immediately or report directly to the nearest Emergency Department if no answer or if after posted office hours. Complications None Condition Stable Disposition PACU [facility] Billing Surgery - Charge Forward: Surgery Billing
--- OUTSIDE RECORDS SUMMARY | 2024-09-18 08:11 | XMS_ITS | Clinical Summary ---
Author Organization [facility] Address [address] [address] Phone Care Team Providers Care Booking Agent Name Role Phone Aleksandra Rivas MD Primary [...] 2 - PCV) 05/13/2017 05/13/2016 SARS-COV-2 Immunization ( season) 2023 12/03/2020, 05/20/2020, 04/29/2020 Influenza Immunization (#1) 2024 Respiratory Syncytial Virus (RSV) Immunization (Adult) [...] Recently Relevant to Health Maintenance Insurance [employer] [facility] Care Teams Booking Agent Relationship Specialty Start Date End Date Aleksandra Rivas MD [address] [place], [place] [id number] PCP - General Family Medicine 11/28/17
--- OUTSIDE RECORDS SUMMARY | 2024-09-18 08:11 | XMS_ITS | Encounter Summary ---
Author Organization [facility] Health Address [address] [place] [address] Care Team Providers Care Social Service Agency Director Name Role Phone Latrell Nichole MD Primary Care Provider [phone] Terrance Garcia MD Unavailable [phone] Linus Dietrich MD Unavailable [phone] Jonn Woo DO Unavailable [phone] Encounter Details Date Type Department Care Team (Late st Contact Info) Description 10/06/2012 Therapy Visit EXTERNAL NON-[facility] DEPT Lukas Hess, NURYS-DIRECTOR SOFTWARE QUALITY ASSURANCE [address] [place] [address] Social History Tobacco Use Types Packs/Day Years Used Date Smoking Tobacco: Never Alcohol Use Standard Drinks/Week Comments No 0 (1 standard drink = 0.6 oz pur e alcohol) Comments Unknown Sex and Gender Information Value Date Recorded Sex Assigned at Not on file 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 Gender Identity Not on file Sexual Orientation Not on file documented as of this encounter Plan of Treatment Not on file documented as of this encounter Visit Diagnoses Not on filedocumented in this encounter Care Teams Social Service Agency Director Relationship Specialty Start Date End Date Latrell Nichole MD [address] [place] [address] PCP - General Family Medicine 06/09/12 Terrance Garcia MD [address] [place] [address] Orthopedic Surgery 06/09/12 Linus Dietrich MD [address] [place] [address] Orthopedic Surgery 08/25/12 Jonn Woo DO [address] [place] [address] Orthopedic Surgery 09/29/15 documented as of this encounter
--- OUTSIDE RECORDS SUMMARY | 2024-09-18 08:11 | XMS_ITS | Encounter Summary ---
Author Organization [facility] Health Address [address] [place] [address] Care Team Providers Care Deburring Technician Name Role Phone Latrell Nichole MD Primary Care Provider [phone] Terrance Garcia MD Unavailable [phone] Linus Dietrich MD Unavailable [phone] Jonn Woo DO Unavailable [phone] Encounter Details Date Type Department Care Team (Late st Contact Info) Description 12/17/2020 Lab Requisition [facility] Care DermPath Lab [address] [place] [address] Jack Ivy MD [address] [place] [address] Social History Tobacco Use Types Packs/Day Years Used Date Smoking Tobacco: Never Alcohol Use Standard Drinks/Week Comments Yes 3 (1 standard drink = 0.6 oz pur e alcohol) Comments No Sex and Gender Information Value Date Recorded Sex Assigned at Not on file 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 Path# [id number] B: Nevus vs SK vs MM. Path# [id number] 12:30 PM CDT DERMATOPATHOLOGY LABORATORY Gross Description Specimen A: Received is one formalin filled container labeled with the patient's name and designated left lower breast. The specimen consists of a shave biopsy measuring [id number]. Jar 0. Specimen B: Received is one formalin filled container labeled with the patient's name and designated lower back. The specimen consists of a shave biopsy measuring [id number]. Jar 0. 12:30 PM CDT DERMATOPATHOLOGY LABORATORY [...] characteristic determined by the Dermatopathology Laboratory at [facility], directed by Dr. Romina Macias. These tests need not be, and therefore are not, approved by the [place] Food and Drug Administration. The tests are used for clinical purposes. Billing Codes Specimen Charges Stain Charges 83575 24058 1 1 12:30 PM CDT DERMATOPATHOLOGY LABORATORY Embedded Images 12:30 PM CDT DERMATOPATHOLOGY LABORATORY Pathology/Cytology TISSUE SPECIMEN FROM SKIN / Unknown 12/15/2020 3:33 AM CDT 12/17/2020 5:54 AM CDT Miscellaneous samples (specimen) TISSUE SPECIMEN FROM SKIN / Unknown 12/15/2020 3:33 AM CDT 12/17/2020 5:54 AM CDT us Jack Ivy MD LAB - PATHOLOGY/CYTOLOGY ORDER OWEN Final Result DERMATOPATHOLOGY LABORATORY [facility] - Department of Dermatology [address] [phone] documented in this encounter Visit Diagnoses Not on filedocumented in this encounter Care Teams Deburring Technician Relationship Specialty Start Date End Date Latrell Nichole MD [address] [place] [address] PCP - General Family Medicine 06/09/12 Terrance Garcia MD [address] [place] [address] Orthopedic Surgery 06/09/12 Linus Dietrich MD [address] [place] [address] Orthopedic Surgery 08/25/12 Jonn Woo DO [address] [place] [address] Orthopedic Surgery 09/29/15 documented as of this encounter
--- OUTSIDE RECORDS SUMMARY | 2024-09-18 08:11 | XMS_ITS | Encounter Summary ---
Author Organization [facility] Address 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
--- OUTSIDE RECORDS SUMMARY | 2024-09-18 08:11 | XMS_ITS | Encounter Summary ---
Author Organization [facility] Address 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
--- OUTSIDE RECORDS SUMMARY | 2024-09-18 08:11 | XMS_ITS | Clinical Summary ---
Author Organization [facility] [employer] Address [address] [place] [address] Care Team Providers Care Director Machine Name Role Phone Latrell Nichole MD Primary Care Provider [phone] Terrance Garcia MD Unavailable [phone] Linus Dietrich MD Unavailable [phone] Jonn Woo DO Unavailable [phone] Source Comments [facility],non-owned Affiliates and Associated Physician Practices is amultiple site organization consisting of ambulatory clinics and hospital sitesin [place], [place], [place] and [place]. This disclosure is being madepursuant to the Care Everywhere program and may not contain all information available regarding this patient. Last updated 17.[facility] [employer] Allergies Active Allergy Reactions Criticality Noted Date [...] on file Legal Sex Female 5:53 AM BUSINESS INFORMATION ANALYST Gender Identity Not on file Sexual Orientation Not on file Last Filed Vital Signs Vital Sign Reading Time Taken Comments Blood Pressure 135/79 02/20/2016 1:50 PM BUSINESS INFORMATION ANALYST Pulse 59 02/20/2016 1:50 PM BUSINESS INFORMATION ANALYST Temperature 36.2 C (97.1 F) 02/20/2016 1:50 PM BUSINESS INFORMATION ANALYST Respiratory Rate 16 02/20/2016 1:30 PM BUSINESS INFORMATION ANALYST Oxygen Saturation 99% 02/20/2016 1:50 PM BUSINESS INFORMATION ANALYST Inhaled Oxygen Concentration - - Weight 84.8 kg (187 lb) 02/20/2016 10:55 AM BUSINESS INFORMATION ANALYST Height 167.6 cm (5' 6) 02/20/2016 10:55 AM BUSINESS INFORMATION ANALYST Body Mass Index 30.18 02/20/2016 10:55 AM BUSINESS INFORMATION ANALYST Plan of Treatment Health Maintenance Due Date [...] 2023-2 5 season) 2023 DEPRESSION SCREENING 03/07/2024 MEDICARE AWV CALENDAR YEAR 2024 INFLUENZA VACCINE (#1) 2024 Respiratory Syncytial Virus (RSV) Vaccine Pt: [...] patient's age to complete this topic Insurance [facility] MEDICARE AET [facility] MANAGED MEDICARE ADV Care Teams Director Machine Relationship Specialty Start Date End Date Latrell Nichole MD [address] [place] [address] PCP - General Family Medicine 06/09/12 Terrance Garcia MD [address] [place] [address] Orthopedic Surgery 06/09/12 Linus Dietrich MD [address] [place] [address] Orthopedic Surgery 08/25/12 Jonn Woo DO [address] [place] [address] Orthopedic Surgery 09/29/15
--- OUTSIDE RECORDS SUMMARY | 2024-09-18 08:11 | XMS_ITS | Clinical Summary ---
Author Organization [facility] Address [address] Attn: Epic Prelude ADT [place] [address] Care Team Providers Care District Adviser Name Role Phone Unavailable Primary Care Provider Unavailabl e Social History Tobacco Use Types Packs/Day Years Used Date Smoking Tobacco: Never Assessed Comments Unknown Sex and Gender Information Value Date Recorded Sex Assigned at Not on file Legal Sex Female 3:51 AM PERSONAL BANKING ADVISOR Gender Identity Not on file Sexual Orientation [...] 2000 OSTEOPOROSIS SCREENING 10/06/2015 INFLUENZA VACCINE (#1) 2024 RSV VACCINE (60+ or ) (1 - 1-dose 75+ series) 2025
--- OUTSIDE RECORDS SUMMARY | 2024-09-18 08:11 | XMS_ITS | Encounter Summary ---
Author Organization [facility] Health Address [address] [place] [address] Care Team Providers Care Fire Investigator Name Role Phone Latrell Nichole MD Primary Care Provider [phone] Terrance Garcia MD Unavailable [phone] Linus Dietrich MD Unavailable [phone] Jonn Woo DO Unavailable [phone] Encounter Details Date Type Department Care Team (Late st Contact Info) Description 09/29/2012 Therapy Visit EXTERNAL NON-[facility] DEPT Lukas Hess, NURYS-DIRECTOR FUNDRAISING [address] [place] [id number] Social History Tobacco Use Types Packs/Day Years Used Date Smoking Tobacco: Never Alcohol Use Standard Drinks/Week Comments No 0 (1 standard drink = 0.6 oz pur e alcohol) Comments Unknown Sex and Gender Information Value Date Recorded Sex Assigned at Not on file 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 Gender Identity Not on file Sexual Orientation Not on file documented as of this encounter Plan of Treatment Not on file documented as of this encounter Visit Diagnoses Not on filedocumented in this encounter Care Teams Fire Investigator Relationship Specialty Start Date End Date Latrell Nichole MD [address] [place] [address] PCP - General Family Medicine 06/09/12 Terrance Garcia MD [address] [place] [address] Orthopedic Surgery 06/09/12 Linus Dietrich MD [address] [place] [address] Orthopedic Surgery 08/25/12 Jonn Woo DO [address] [place] [address] Orthopedic Surgery 09/29/15 documented as of this encounter
[2024-09-18 08:25] VITALS: BMI 26.4
[2024-09-18 08:28] VITALS: BP 127/83; PULSE 98; RESP 16; TEMP 37.1; O2SAT 98
[2024-09-18] MEDS: LACTATED RINGERS 1,000 ML 30 ML IV CONT ×2 (08:45→09:56)
--- NOTE | 2024-09-18 09:21 | WPDANESEPPF ---
Anes - Initial Pre Proc Eval Procedure: Operation Date: 09/18/24 09:45 Proposed Procedures p Thermal Radiofrequency Ablation Right C5, C6, C7 Medial Branch/Dorsal Rami Addressing Right C5-6, C6-7 Facet Joints under Fluoroscopic Guidance with Contrast Control - Terrance Richardson MD Date/Time: 09/18/24 09:21 Surgeon: Terrance Richardson MD Pre Op Diagnosis: Lumbosacral Spondylosis w/o Myelopathy or Radicul. Patient Data Age: 73 Gender: F Height: 1.68 m Weight: 74.1 kg Last Vital Signs Temp 98.8 F 09/18/24 08:28 Pulse 98 09/18/24 08:28 Resp 16 09/18/24 08:28 BP 127/83 09/18/24 08:28 Pulse Ox 98 09/18/24 08:28 O2 Del Method Room Air 09/18/24 08:28 Allergies Allergy/AdvReac Type Severity Reaction Status Date / Time meperidine AdvReac Intermediate Nausea and Verified 09/18/24 08:15 Vomiting Home Medications ?Medication ?Instructions ?Recorded ?Confirmed ?Type calcium 600 mg (as 1 cap PO DAILY 04/03/20 09/18/24 History carbonate)-vitamin D3 5 mcg (200 unit) capsule (Calcium 600 + D(3)) polyethylene glycol 3350 17 gram 17 g PO DAILY 07/22/21 09/18/24 History oral powder packet (Miralax) omeprazole 40 mg capsule,delayed 40 mg PO DAILY #90 caps 10/18/23 09/18/24 Rx release mirabegron 50 mg tablet,extended 50 mg PO DAILY #90 tabs 01/26/24 09/18/24 Rx release 24 hr (Myrbetriq) sertraline 50 mg tablet (Zoloft) 50 mg PO DAILY #90 tabs 04/14/24 09/18/24 Rx famotidine 40 mg tablet 40 mg PO DAILY #90 tabs 04/15/24 09/18/24 Rx trazodone 50 mg tablet See Rx Instructions .Route 04/15/24 09/18/24 Rx .COMPLEX #180 tabs estradiol 10 mcg vaginal tablet 10 mcg vaginal 2XW #24 tabs 07/06/24 09/18/24 Rx levothyroxine 50 mcg tablet 50 mcg PO DAILY #90 tabs 07/24/24 09/18/24 Rx Patient hx anesthesia problems: none Family hx anesthesia problems: none Results Review: All pre-operative results and documents have been reviewed as part of the pre-operative evaluation. [facility]MERLY [facility], [facility] Past Medical History Medical History Skin cancer Lumbar spondylosis Cough Gastroesophageal reflux disease Postmenopausal state Right hip pain (~11/2017) Urinary incontinence concurrent with and due to female genital prolapse (~08/2018) Primary insomnia NEIL (generalized anxiety disorder) Anxiety Herpes simplex type 1 infection Hypothyroidism Surgical History Surgical History Hx of cataract surgery Both eyes 06/27 History of appendectomy History of bilateral tubal ligation History of left knee replacement History of blepharoplasty History of hysterectomy History of delivery x 2 History of arthroplasty of left knee Partial medial Family History Family History Sibling Family history of lung cancer Mother Family history of malignant neoplasm of ovary Other Family history of arthritis Family history of malignant neoplasm Social History Social History Smoking status: Never smoker Second hand tobacco smoke exposure: Yes Alcohol intake: unknown Drinks per week: 1 Alcohol use details: beer/ wine socially Substance use: never Substance use type: unknown Do You Feel Safe in your Home?: Yes Lack of Transportation: No Lack of Food: Never True Current Housing: I Have Housing Concerned About Future Housing: No Difficulty Paying Gas/Electric Bills: No Difficulty Paying for Meds: No Currently Unemployed: No Education: Associate Degree Difficulty w/ Childcare or Family Care: No Living arrangements: with family Gender identity (if verbalized by the patient): Female Spiritual care concerns: No Agree to blood products: Yes Anes - Eval Final PreProcedure Day of Procedure 09/18/24 09:21 Heart: regular rate and rhythm Lungs: clear to auscultation Airway: Mallampati scale class II Neurological: alert and oriented Last oral intake: >/= 8 hours ASA classification: II Anesthetic plan: proceed Anesthesia type and monitoring: monitored anesthesia care Results Review: All pre-operative results and documents have been reviewed as part of the pre-operative evaluation. Informed Consent: The patient's anesthetic plan and its attendant risks and benefits were discussed with the patient/family/POA. Questions were solicited and answers provided to the satisfaction of the patient/family/POA.
--- NOTE | 2024-09-18 09:50 | WPDANESPN ---
Anes - Prog Note Post-Op Date/Time: 09/18/24 09:50 Vital Signs: Last Vital Signs Temp 98.8 F 09/18/24 08:28 Pulse 98 09/18/24 08:28 Resp 16 09/18/24 08:28 BP 127/83 09/18/24 08:28 Pulse Ox 98 09/18/24 08:28 O2 Del Method Room Air 09/18/24 08:28 Pain Score (VAS): 2 Patient Feedback: Patient satisfied with anesthetic care.
[2024-09-18] MEDS: BUPivacaine HCL 0.5% 10 ML AMP INFILTRATE (09:57)
[2024-09-18 10:06] VITALS: BP 132/77; PULSE 77; RESP 16; O2SAT 98
[2024-09-18 10:25] VITALS: BP 123/69; PULSE 71; RESP 16; O2SAT 96
[2024-09-18 10:35] VITALS: BP 142/78; PULSE 68; RESP 15; O2SAT 99
[2024-09-18 10:45] VITALS: BP 143/70; PULSE 65; RESP 14; O2SAT 100
== END 2024-09-18 11:03 | disposition home or self-care (01) ==
PROVIDERS: PCP Family Medicine; Visit Provider Anesthesiology Pain Medicine
PROC: (CPT 64633; principal; 2024-09-18 09:45)
DX: M47.812 Spondylosis without myelopathy or radiculopathy, cervical region (principal)
CPT/HCPCS: 64633; 64634; 99199

== ENCOUNTER 2024-10-09 00:53 | Day surgery (SDC) | payer OTHER, SELFPAY ==
[2024-09-25 09:20] VITALS: BMI 26.6
--- OUTSIDE RECORDS SUMMARY | 2024-10-09 00:55 | XMS_ITS | Encounter Summary ---
Author Organization [facility] Address 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
--- OUTSIDE RECORDS SUMMARY | 2024-10-09 00:55 | XMS_ITS | Clinical Summary ---
Author Organization [facility] Address [address] [place] [address] Care Team Providers Care School Secretary Name Role Phone Latrell Nichole MD Primary Care Provider [phone] Terrance Garcia MD Unavailable [phone] Linus Dietrich MD Unavailable [phone] Jonn Woo DO Unavailable [phone] Source Comments [facility],non-owned Affiliates and Associated Physician Practices is amultiple site organization consisting of ambulatory clinics and hospital sitesin [place], [place], [place] and [place]. This disclosure is being madepursuant to the Care Everywhere program and may not contain all information available regarding this patient. 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 Gender Identity Not on file Sexual Orientation Not on file Last Filed Vital Signs Vital Sign Reading Time Taken Comments Blood Pressure 135/79 02/20/2016 1:50 PM GREASE RACK WORKER Pulse 59 02/20/2016 1:50 PM GREASE RACK WORKER Temperature 36.2 C (97.1 F) 02/20/2016 1:50 PM GREASE RACK WORKER Respiratory Rate 16 02/20/2016 1:30 PM GREASE RACK WORKER Oxygen Saturation 99% 02/20/2016 1:50 PM GREASE RACK WORKER Inhaled Oxygen Concentration - - Weight 84.8 kg (187 lb) 02/20/2016 10:55 AM GREASE RACK WORKER Height 167.6 cm (5' 6) 02/20/2016 10:55 AM GREASE RACK WORKER Body Mass Index 30.18 02/20/2016 10:55 AM GREASE RACK WORKER Plan of Treatment Health Maintenance Due Date [...] age to complete this topic Insurance [facility] ANTHEM MEDICARE AET [facility] MANAGED MEDICARE ADV Care Teams School Secretary Relationship Specialty Start Date End Date Latrell Nichole MD [address] [place] [address] PCP - General Family Medicine 06/09/12 Terrance Garcia MD [address] [place] [address] Orthopedic Surgery 06/09/12 Linus Dietrich MD [address] [place] [address] Orthopedic Surgery 08/25/12 Jonn Woo DO [address] [place] [address] Orthopedic Surgery 09/29/15
--- OUTSIDE RECORDS SUMMARY | 2024-10-09 00:55 | XMS_ITS | Clinical Summary ---
Author Organization [facility] Address [address] [address] Phone Care Team Providers Care Mill Crane Operator Name Role Phone Aleksandra Rivas MD Primary [...] Recently Relevant to Health Maintenance Insurance [facility] Care Teams Mill Crane Operator Relationship Specialty Start Date End Date Aleksandra Rivas MD [address] [place], [place] [id number] PCP - General Family Medicine 11/28/17
--- OUTSIDE RECORDS SUMMARY | 2024-10-09 00:55 | XMS_ITS | Clinical Summary ---
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
--- OUTSIDE RECORDS SUMMARY | 2024-10-09 00:55 | XMS_ITS | Encounter Summary ---
Author Organization [facility] Address [address] [place] [address] Care Team Providers Care Engineering Coordinator Name Role Phone Unavailable Primary Care Provider Unavailabl e Encounter Details Date Type Department Care Team (Latest Contact Info) Description 12/08/2000 Outpatient Historical HIS [facility] Summers, Scott Brice MD NO ADDRESS ON FILE Other follow-up examination(D75.11) (Primary Dx) Social History Tobacco Use Types Packs/Day Years Used Date Smoking Tobacco: Never Assessed Comments Unknown Sex and Gender Information Value Date Recorded Sex Assigned at Not on file Legal Sex Female 3:51 AM RN LICENSED PRACTICAL Gender Identity Not on file Sexual Orientation Not on file documented as of this encounter Plan of Treatment Not on file documented as of this encounter Visit Diagnoses Diagnosis Other follow-up examination(O1759)- Primary Other follow-up examination documented in this encounter
--- OUTSIDE RECORDS SUMMARY | 2024-10-09 00:56 | XMS_ITS | Encounter Summary ---
Author Organization [facility] Address [address] 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 MANAGER Gender Identity Not on file Sexual Orientation Not on file documented as of this encounter Plan of Treatment Not on file documented as of this encounter Visit Diagnoses Not on filedocumented in this encounter Care Teams Hooking Machine Operator Relationship Specialty Start Date End Date Latrell Nichole MD [address] [place] [address] PCP - General Family Medicine 06/09/12 Terrance Garcia MD [address] [place] [address] Orthopedic Surgery 06/09/12 Linus Dietrich MD [address] [place] [address] Orthopedic Surgery 08/25/12 Jonn Woo DO [address] [place] [address] Orthopedic Surgery 09/29/15 documented as of this encounter
--- OUTSIDE RECORDS SUMMARY | 2024-10-09 00:56 | XMS_ITS | Encounter Summary ---
Author Organization [facility] Address [address] 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 Gender Identity Not on file Sexual Orientation Not on file documented as of this encounter Plan of Treatment Not on file documented as of this encounter Visit Diagnoses Not on filedocumented in this encounter Care Teams Mitering Machine Operator Relationship Specialty Start Date End Date Latrell Nichole MD [address] [place] [address] PCP - General Family Medicine 06/09/12 Terrance Garcia MD [address] [place] [address] Orthopedic Surgery 06/09/12 Linus Dietrcih MD [address] [place] [address] Orthopedic Surgery 08/25/12 Jonn Woo DO [address] [place] [address] Orthopedic Surgery 09/29/15 documented as of this encounter
--- OUTSIDE RECORDS SUMMARY | 2024-10-09 00:56 | XMS_ITS | Encounter Summary ---
Author Organization [facility] Address [address] [place] [address] Care Team Providers Care Tool Grinder Operator External Name Role Phone Latrell Nichole MD Primary Care Provider [phone] Terrance Garcia MD Unavailable [phone] Linus Dietrich MD Unavailable [phone] Jonn Woo DO Unavailable [phone] Encounter Details Date Type Department Care Team (Late st Contact Info) Description 12/17/2020 Lab Requisition [facility] [address] [place] [id number] Jack Ivy MD [address] [place] [address] Social History Tobacco Use Types Packs/Day Years Used Date Smoking Tobacco: Never Alcohol Use Standard Drinks/Week Comments Yes 3 (1 standard drink = 0.6 oz pur e alcohol) Comments No Sex and Gender Information Value Date Recorded Sex Assigned at Not on file Legal Sex Female 5:53 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 Path# [id number] B: Nevus vs SK vs MM. Path# [id number] 12:30 PM CDT DERMATOPATHOLOGY LABORATORY Gross Description Specimen A: Received is one formalin filled container labeled with the patient's name and designated left lower breast. The specimen consists of a shave biopsy measuring [id number]. Jar 0. Specimen B: Received is one formalin filled container labeled with the patient's name and designated lower back. The specimen consists of a shave biopsy measuring [id number]. Jar 0. 12:30 PM CDT DERMATOPATHOLOGY LABORATORY [...] characteristic determined by the Dermatopathology Laboratory at [facility], directed by Dr. Romina Macias. These tests need not be, and therefore are not, approved by the [place] Food and Drug Administration. The tests are used for clinical purposes. Billing Codes Specimen Charges Stain Charges 76200 72265 1 1 12:30 PM CDT DERMATOPATHOLOGY LABORATORY Embedded Images 12:30 PM CDT DERMATOPATHOLOGY LABORATORY Pathology/Cytology TISSUE SPECIMEN FROM SKIN / Unknown 12/15/2020 3:33 AM CDT 12/17/2020 5:54 AM CDT Miscellaneous samples (specimen) TISSUE SPECIMEN FROM SKIN / Unknown 12/15/2020 3:33 AM CDT 12/17/2020 5:54 AM CDT us Jack Ivy MD LAB - PATHOLOGY/CYTOLOGY ORDER OWEN Final Result DERMATOPATHOLOGY LABORATORY [facility] - Department of Dermatology [address], [address] [phone] documented in this encounter Visit Diagnoses Not on filedocumented in this encounter Care Teams Tool Grinder Operator External Relationship Specialty Start Date End Date Latrell Nichole MD [address] [place] [address] PCP - General Family Medicine 06/09/12 Terrance Garcia MD [address] [place] [address] Orthopedic Surgery 06/09/12 Linus Dietrich MD [address] [place] [address] Orthopedic Surgery 08/25/12 Jonn Woo DO [address] [place] [address] Orthopedic Surgery 09/29/15 documented as of this encounter
[2024-10-09 10:21] VITALS: BP 164/89; PULSE 66; RESP 18; TEMP 36.6; O2SAT 100; BMI 26.6
[2024-10-09] MEDS: LACTATED RINGERS 1,000 ML 150 ML IV CONT (10:30)
--- NOTE | 2024-10-09 10:40 | WPDANESEPPF ---
Anes - Initial Pre Proc Eval Procedure: Operation Date: 10/09/24 14:00 Proposed Procedures p Colonoscopy - Bryant Bass MD Date/Time: 10/09/24 10:40 Surgeon: Bryant Bass MD Pre Op Diagnosis: Other fecal abnormalities Patient Data Age: 74 Gender: F Height: 1.68 m Weight: 74.7 kg Last Vital Signs Temp 36.6 C 10/09/24 10:21 Pulse 66 10/09/24 10:21 Resp 18 10/09/24 10:21 BP 164/89 H 10/09/24 10:21 Pulse Ox 100 10/09/24 10:21 O2 Del Method Room Air 10/09/24 10:21 Allergies Allergy/AdvReac Type Severity Reaction Status Date / Time meperidine AdvReac Severe Nausea and Verified 10/09/24 10:18 Vomiting Home Medications ?Medication ?Instructions ?Recorded ?Confirmed ?Type calcium 600 mg (as 1 cap PO DAILY 04/03/20 10/09/24 History carbonate)-vitamin D3 5 mcg (200 unit) capsule (Calcium 600 + D(3)) polyethylene glycol 3350 17 gram 17 g PO DAILY 07/22/21 10/09/24 History oral powder packet (Miralax) mirabegron 50 mg tablet,extended 50 mg PO DAILY #90 tabs 01/26/24 10/09/24 Rx release 24 hr (Myrbetriq) sertraline 50 mg tablet (Zoloft) 50 mg PO DAILY #90 tabs 04/14/24 10/09/24 Rx estradiol 10 mcg vaginal tablet 10 mcg vaginal 2XW #24 tabs 07/06/24 09/25/24 Rx levothyroxine 50 mcg tablet 50 mcg PO DAILY #90 tabs 07/24/24 10/09/24 Rx sodium,potassium,mag sulfates 17.5 See Rx Instructions PO .COMPLEX 09/25/24 Rx gram-3.13 gram-1.6 gram oral soln #354 mL (Suprep Bowel Prep Kit) peg 3350 240 gram-electrolytes 240 ml PO ONCE #4,000 mL 09/27/24 Rx 22.72 gram-6.72 g-5.84 g powdr for soln (Gavilyte-C) famotidine 40 mg tablet 40 mg PO DAILY #90 tabs 10/07/24 10/09/24 Rx omeprazole 40 mg capsule,delayed 40 mg PO DAILY #90 caps 10/07/24 10/09/24 Rx release trazodone 50 mg tablet See Rx Instructions .Route 10/07/24 10/09/24 Rx .COMPLEX #180 tabs Patient hx anesthesia problems: none Family hx anesthesia problems: none Results Review: All pre-operative results and documents have been reviewed as part of the pre-operative evaluation. [facility] Past Medical History Medical History Skin cancer Lumbar spondylosis Cough Gastroesophageal reflux disease Postmenopausal state Right hip pain (~11/2017) Urinary incontinence concurrent with and due to female genital prolapse (~08/2018) Primary insomnia NEIL (generalized anxiety disorder) Anxiety Herpes simplex type 1 infection Hypothyroidism Surgical History Surgical History Hx of cataract surgery Both eyes 06/27 History of appendectomy History of bilateral tubal ligation History of left knee replacement History of blepharoplasty History of hysterectomy History of delivery x 2 History of arthroplasty of left knee Partial medial Family History Family History Sibling Family history of lung cancer Mother Family history of malignant neoplasm of ovary Other Family history of arthritis Family history of malignant neoplasm Social History Social History Smoking status: Never smoker Second hand tobacco smoke exposure: Yes Alcohol intake: unknown Drinks per week: 1 Alcohol use details: beer/ wine socially Substance use: never Substance use type: unknown Do You Feel Safe in your Home?: Yes Lack of Transportation: No Lack of Food: Never True Current Housing: I Have Housing Concerned About Future Housing: No Difficulty Paying Gas/Electric Bills: No Difficulty Paying for Meds: No Currently Unemployed: No Education: Associate Degree Difficulty w/ Childcare or Family Care: No Living arrangements: with family Gender identity (if verbalized by the patient): Female Spiritual care concerns: No Agree to blood products: Yes Anes - Eval Final PreProcedure Day of Procedure 10/09/24 10:40 Patient weight: overweight Heart: regular rate and rhythm Lungs: clear to auscultation Airway: Mallampati scale class II Neurological: alert and oriented Last oral intake: >/= 8 hours ASA classification: III Emergent: no Anesthetic plan: proceed Anesthesia type and monitoring: general GIVS and standard monitoring Results Review: All pre-operative results and documents have been reviewed as part of the pre-operative evaluation. Informed Consent: The patient's anesthetic plan and its attendant risks and benefits were discussed with the patient/family/POA. Questions were solicited and answers provided to the satisfaction of the patient/family/POA.
--- NOTE | 2024-10-09 11:30 | PM.HPGS ---
History of Present Illness History of Present Illness Consent: Risks, benefits, and alternatives have been discussed and questions answered. Patient agrees to proceed with procedure. Chief complaint: Other fecal abnormalities Narrative: Maryjane Mancuso is a 74 year old female with recent change bowel habits, last colonoscopy about 10 years ago Review of Systems Review of Systems: All systems reviewed & are unremarkable except as noted in HPI and below PMFSH Past Medical History Medical History (Updated 10/09/24 @ 11:31 by Bryant Bass MD) Bowel habit changes Skin cancer Lumbar spondylosis Cough Gastroesophageal reflux disease Postmenopausal state Right hip pain (~11/2017) Urinary incontinence concurrent with and due to female genital prolapse (~08/2018) Primary insomnia NEIL (generalized anxiety disorder) Anxiety Herpes simplex type 1 infection Hypothyroidism Surgical History Surgical History Hx of cataract surgery Both eyes 06/27 History of appendectomy History of bilateral tubal ligation History of left knee replacement History of blepharoplasty History of hysterectomy History of delivery x 2 History of arthroplasty of left knee Partial medial Family History Family History Sibling Family history of lung cancer Mother Family history of malignant neoplasm of ovary Other Family history of arthritis Family history of malignant neoplasm Social History Social History Smoking status: Never smoker Second hand tobacco smoke exposure: Yes Alcohol intake: unknown Drinks per week: 1 Alcohol use details: beer/ wine socially Substance use: never Substance use type: unknown Do You Feel Safe in your Home?: Yes Lack of Transportation: No Lack of Food: Never True Current Housing: I Have Housing Concerned About Future Housing: No Difficulty Paying Gas/Electric Bills: No Difficulty Paying for Meds: No Currently Unemployed: No Education: Associate Degree Difficulty w/ Childcare or Family Care: No Living arrangements: with family Gender identity (if verbalized by the patient): Female Spiritual care concerns: No Agree to blood products: Yes Meds Home Medications and Allergies Home Medications ?Medication ?Instructions ?Recorded ?Confirmed ?Type calcium 600 mg (as 1 cap PO DAILY 04/03/20 10/09/24 History carbonate)-vitamin D3 5 mcg (200 unit) capsule (Calcium 600 + D(3)) polyethylene glycol 3350 17 gram 17 g PO DAILY 07/22/21 10/09/24 History oral powder packet (Miralax) mirabegron 50 mg tablet,extended 50 mg PO DAILY #90 tabs 01/26/24 10/09/24 Rx release 24 hr (Myrbetriq) sertraline 50 mg tablet (Zoloft) 50 mg PO DAILY #90 tabs 04/14/24 10/09/24 Rx estradiol 10 mcg vaginal tablet 10 mcg vaginal 2XW #24 tabs 07/06/24 09/25/24 Rx levothyroxine 50 mcg tablet 50 mcg PO DAILY #90 tabs 07/24/24 10/09/24 Rx sodium,potassium,mag sulfates 17.5 See Rx Instructions PO .COMPLEX 09/25/24 Rx gram-3.13 gram-1.6 gram oral soln #354 mL (Suprep Bowel Prep Kit) peg 3350 240 gram-electrolytes 240 ml PO ONCE #4,000 mL 09/27/24 Rx 22.72 gram-6.72 g-5.84 g powdr for soln (Gavilyte-C) famotidine 40 mg tablet 40 mg PO DAILY #90 tabs 10/07/24 10/09/24 Rx omeprazole 40 mg capsule,delayed 40 mg PO DAILY #90 caps 10/07/24 10/09/24 Rx release trazodone 50 mg tablet See Rx Instructions .Route 10/07/24 10/09/24 Rx .COMPLEX #180 tabs Allergies Allergy/AdvReac Type Severity Reaction Status Date / Time meperidine AdvReac Severe Nausea and Verified 10/09/24 10:18 Vomiting Vital Signs Vital Signs - 24 hr 10/09/24 10:21 Temperature 97.9 F Pulse Rate 66 Respiratory Rate 18 Blood Pressure 164/89 H Pulse Oximetry 100 Oxygen Delivery Room Air Exam Const: General: comfortable and no acute distress HENMT: Face/Nose/Sinus: Normal nares present Eyes: General: appearance normal, both eyes and all related structures Neck: Neck: no JVD Resp: Auscultation: clear to auscultation bilaterally Cardio: Rate: regular rate Rhythm: regular rhythm GI: Inspection: non-distended GI Palp: Yes Soft to palpation Skin: General skin exam: normal color Neuro: Speech: normal speech Extrem: General: normal to inspection Psych: Mental Status: mental status grossly normal Assessment and Plan Assessment and plan (1) Bowel habit changes: Code(s): R19.4 - Change in bowel habit Status: Acute Assessment and Plan: colonoscopy
[2024-10-09 11:53] VITALS: BP 137/67; PULSE 61; RESP 21; O2SAT 98
[2024-10-09 12:03] VITALS: BP 141/76; PULSE 54; RESP 18; O2SAT 99
[2024-10-09 12:13] VITALS: BP 152/78; PULSE 54; RESP 18; O2SAT 99
== END 2024-10-09 12:17 | disposition home or self-care (01) ==
PROVIDERS: PCP Family Medicine; Referring Provider Student in an Organized Health Care Education/Training Program; Visit Provider Internal Medicine Gastroenterology
PROC: 0DJD8ZZ Inspection of Lower Intestinal Tract, Via Natural or Artificial Opening Endoscopic (ICD-10-PCS; CPT 45378; principal; 2024-10-09 14:00)
DX: R19.4 Change in bowel habit (principal); K57.30 Diverticulosis of large intestine without perforation or abscess without bleeding; K64.8 Other hemorrhoids
CPT/HCPCS: 45378; J2003; J2704; J7120